=== PATIENT | male | born 1955 | race Caucasian/White ===

== ENCOUNTER 2017-01-05 12:14 | Emergency (ER) | payer MEDICAID ==
[~2017-01-05] VITALS: Ht 182.9 cm; Wt 100.0 kg
[~2017-01-05 12:14] MED LIST: FINA5TAB11 PO; TAMS0.4C31 PO
[2017-01-05 12:15] VITALS: BP 158/72
[2017-01-05] MEDS ORDERED: BACITRACIN ZINC OINT UDPKT TOP ONE (13:45)
[2017-01-05] MEDS ORDERED: LIDOCAINE HCL 1% 20ML VIAL (Pyxis) INJ INJ ONE (13:45)
[2017-01-05] MEDS ORDERED: LIDOCAINE HCL/EPINEPHRINE 1%-EPI 1:100,000 20 ML VIAL INFIL ONE (13:45)
[2017-01-05] MEDS ORDERED: LIDOCAINE HCL 1%/EPI 1:200,000 30 ML VIAL MC NR (14:26)
== END 2017-01-05 15:34 | disposition home or self-care (01) ==
LOC: ER 12:29
DX: S01.111A Laceration without foreign body of right eyelid and periocular area, initial encounter (principal); I10 Essential (primary) hypertension; C79.51 Secondary malignant neoplasm of bone; W01.0XXA Fall on same level from slipping, tripping and stumbling without subsequent striking against object, initial encounter; Y93.89 Activity, other specified; Y99.8 Other external cause status; Y92.89 Other specified places as the place of occurrence of the external cause; Z85.46 Personal history of malignant neoplasm of prostate; Z88.0 Allergy status to penicillin
CPT/HCPCS: 12002; 12013; 99283; J3490; X7700; Z7610; 12011

== ENCOUNTER 2017-01-19 07:55 | Emergency (ER) | payer MEDICAID ==
[~2017-01-19] VITALS: Ht 193 cm; Wt 114.0 kg
[2017-01-19 10:30] VITALS: BP 148/100
== END 2017-01-19 10:54 | disposition home or self-care (01) ==
LOC: ER 07:55
DX: S01.01XD Laceration without foreign body of scalp, subsequent encounter (principal); I10 Essential (primary) hypertension; C61 Malignant neoplasm of prostate; Z88.0 Allergy status to penicillin; W19.XXXD Unspecified fall, subsequent encounter; Y92.89 Other specified places as the place of occurrence of the external cause; Y99.8 Other external cause status
CPT/HCPCS: 99283; X7700; Z7610

== ENCOUNTER 2018-12-15 09:59 | Emergency (ER) | payer MEDICAID ==
[~2018-12-15] VITALS: Ht 190.5 cm; Wt 113.0 kg
[2018-12-15] MEDS ORDERED: MORPHINE SULFATE 4 MG/ML CPJ (NOT FOR IM USE) IV STA (10:39)
[2018-12-15 11:17] LABS: BASOPHILS % 1.2 % (0.0-2.0); HEMOGLOBIN. 9.8 g/dL (14.0-18.0); LYMPHOCYTES % 12.6 % (20.0-50.0); MEAN CORPUSCULAR HEMOGLOBIN 28.6 pg (28.0-32.0); MEAN CORPUSCULAR VOLUME 87.1 fL (80.0-94.0); MEAN PLATELET VOLUME 7.8 fl (7.4-10.4); MONOCYTES % 8.3 % (2.0-8.0); NEUTROPHILS % 76.9 % (40.0-76.0); PLATELET 286 x1000/uL (130-400); RED BLOOD CELL COUNT 3.44 mill/uL (4.7-6.1); RED CELL DISTRIBUTION WIDTH 16.5 % (11.6-14.6)
[2018-12-15 11:22] LABS: CHLORIDE 102 mEq/L (98-107)
[2018-12-15 12:39] VITALS: BP 137/92
[2018-12-15] MEDS ORDERED: LACTULOSE 20G/30ML UDC PO ONE (12:45)
[2018-12-15] MEDS ORDERED: MAGNESIUM CITRATE 300ML SOLUTION PO ONE (12:45)
== END 2018-12-15 13:00 | disposition home or self-care (01) ==
LOC: ER 09:59
DX: K59.00 Constipation, unspecified (principal); I10 Essential (primary) hypertension; Z85.830 Personal history of malignant neoplasm of bone; Z92.21 Personal history of antineoplastic chemotherapy; Z88.0 Allergy status to penicillin
CPT/HCPCS: 36415; 74176; 80053; 83690; 85025; 96374; 99284; J2270

== ENCOUNTER 2018-12-28 09:54 | Inpatient (IN) | payer MEDICAID ==
[2018-12-28] VITALS (7 sets, daily range): BP systolic 74–146; BP diastolic 47–78
[~2018-12-28] VITALS: Ht 188 cm; Wt 127.1 kg
[2018-12-28] MEDS ORDERED: DEXAMETHASONE 10 MG/ML VIAL IV ONE (10:45)
[2018-12-28 11:02] LABS: HEMATOCRIT. 32.8 % (42.0-52.0); HEMOGLOBIN. 10.7 g/dL (14.0-18.0); MEAN CORPUSCULAR HEMOGLOBIN 28.5 pg (28.0-32.0); MEAN CORPUSCULAR VOLUME 87.6 fL (80.0-94.0); MEAN PLATELET VOLUME 8.1 fl (7.4-10.4); PLATELET 210 x1000/uL (130-400); RED BLOOD CELL COUNT 3.74 mill/uL (4.7-6.1); RED CELL DISTRIBUTION WIDTH 18.6 % (11.6-14.6)
[2018-12-28 11:07] LABS: CHLORIDE 97 mEq/L (98-107)
[2018-12-28 11:21] LABS: PLATELET ESTIMATE NORMAL
[2018-12-28] MEDS ORDERED: MORPHINE SULFATE 4 MG/ML CPJ (NOT FOR IM USE) IV ONE (11:30)
[2018-12-28 12:12] LABS: CLARITY URINE CLOUDY (CLEAR); COLOR URINE YELLOW (YELLOW); KETONES URINE NEGATIVE (NEGATIVE); LEUKOCYTE ESTERASE URINE TRACE (NEGATIVE); NITRITE URINE NEGATIVE (NEGATIVE); OCCULT BLOOD URINE 2+ (NEGATIVE); PH URINE 5.5 (4.5-8.0); PROTEIN URINE TRACE (NEGATIVE); SPECIFIC GRAVITY URINE 1.015 (1.005-1.030); UROBILINOGEN URINE 0.2 E.U./dL (0.2-1.0)
[2018-12-28] MEDS: DEXT 5%/LACTATED RINGERS 1,000 ML IV SCH (17:30)
[2018-12-28] MEDS ORDERED: DEXAMETHASONE 4MG/ML 1ML VIAL IV SCH (18:00)
[2018-12-28] MEDS: DEXAMETHASONE 4MG/ML 1ML VIAL IV SCH (22:22)
[2018-12-28] MEDS: MORPHINE SULFATE 2 MG/ML CPJ (NOT FOR IM USE) IV PRN (23:45)
[2018-12-29] VITALS (47 sets, daily range): BP systolic 85–155; BP diastolic 54–94
[2018-12-29] MEDS: DEXAMETHASONE 4MG/ML 1ML VIAL IV SCH ×3 (01:26→08:18)
[2018-12-29] MEDS: DEXT 5%/LACTATED RINGERS 1,000 ML IV SCH ×3 (01:31→16:47)
[2018-12-29 04:45] LABS: HEMATOCRIT. 28.7 % (42.0-52.0); HEMOGLOBIN. 9.5 g/dL (14.0-18.0); MEAN CORPUSCULAR HEMOGLOBIN 28.9 pg (28.0-32.0); MEAN PLATELET VOLUME 8.8 fl (7.4-10.4); PLATELET 158 x1000/uL (130-400); RED CELL DISTRIBUTION WIDTH 18.8 % (11.6-14.6)
[2018-12-29] MEDS ORDERED: ENOXAPARIN 40MG/0.4ML SYR SUBCUT SCH (09:00)
[2018-12-29] MEDS ORDERED: PANTOPRAZOLE 40MG DR TABLET PO SCH (09:00)
[2018-12-29 09:21] LABS: PLATELET ESTIMATE NORMAL
[2018-12-29] MEDS ORDERED: DEXTROSE 50% WATER 50ML SYRINGE IV PRN (09:45)
[2018-12-29] MEDS ORDERED: IPRATROPIUM/ALBUTEROL 0.5-3(2.5)MG/3ML NEB HHN PRN (10:30)
[2018-12-29] MEDS: BLOOD SUGAR DIAGNOSTIC STRIP TEST SCH ×3 (11:52→19:56)
[2018-12-29] MEDS: INSULIN LISPRO 100 UNITS/ML SUBCUT SCH ×3 (11:59→20:02)
[2018-12-29 12:32] LABS: TOTAL IRON BINDING CAPACITY 162 ug/dL (250-450)
[2018-12-29] MEDS: DEXAMETHASONE 10 MG/ML VIAL IV SCH ×4 (12:33→23:20)
[2018-12-29 13:59] LABS: INR 1.1; PROTHROMBIN TIME 11.2 sec (9.6-11.0)
[2018-12-29] MEDS: ACETYLCYSTEINE 100MG/ML 10% VIAL 4ML INH SCH (14:13)
[2018-12-29] MEDS: IPRATROPIUM/ALBUTEROL 0.5-3(2.5)MG/3ML NEB HHN SCH ×3 (14:13→20:33)
[2018-12-29] MEDS ORDERED: LOSA50TA41 MT (15:10)
[2018-12-29] MEDS ORDERED: HYDR-3281 PO (15:10)
[2018-12-29] MEDS ORDERED: MORPHINE SULFATE PO (15:10)
[2018-12-29 16:20] LABS: HEPATITIS B SURFACE ANTIGEN NEGATIVE
[2018-12-29 16:45] LABS: HEPATITIS A AB IGM NEGATIVE (NEGATIVE)
[2018-12-29] MEDS ORDERED: BISACODYL 10MG SUPP PR NR (18:30)
[2018-12-29] MEDS: MORPHINE SULFATE 2 MG/ML CPJ (NOT FOR IM USE) IV PRN (23:31)
[2018-12-30] VITALS (57 sets, daily range): BP systolic 94–209; BP diastolic 22–115
[2018-12-30] MEDS: ACETYLCYSTEINE 100MG/ML 10% VIAL 4ML INH SCH ×3 (00:05→16:39)
[2018-12-30] MEDS: IPRATROPIUM/ALBUTEROL 0.5-3(2.5)MG/3ML NEB HHN SCH ×6 (00:05→20:38)
[2018-12-30] MEDS: DEXT 5%/LACTATED RINGERS 1,000 ML IV SCH (01:53)
[2018-12-30] MEDS: DEXAMETHASONE 10 MG/ML VIAL IV SCH (04:50)
[2018-12-30] MEDS: MORPHINE SULFATE 2 MG/ML CPJ (NOT FOR IM USE) IV PRN ×2 (04:50→08:30)
[2018-12-30 04:57] LABS: HEMATOCRIT. 25.8 % (42.0-52.0); HEMOGLOBIN. 8.6 g/dL (14.0-18.0); MEAN CORPUSCULAR HEMOGLOBIN 28.8 pg (28.0-32.0); MEAN CORPUSCULAR VOLUME 86.6 fL (80.0-94.0); MEAN PLATELET VOLUME 8.9 fl (7.4-10.4); PLATELET 147 x1000/uL (130-400); RED BLOOD CELL COUNT 2.97 mill/uL (4.7-6.1); RED CELL DISTRIBUTION WIDTH 18.3 % (11.6-14.6)
[2018-12-30 05:02] LABS: CHLORIDE 102 mEq/L (98-107)
[2018-12-30 05:15] LABS: PHOSPHORUS 2.4 mg/dL (2.5-4.9)
[2018-12-30] MEDS: BLOOD SUGAR DIAGNOSTIC STRIP TEST SCH ×4 (06:17→20:47)
[2018-12-30] MEDS: INSULIN LISPRO 100 UNITS/ML SUBCUT SCH ×4 (06:18→20:50)
[2018-12-30 08:49] LABS: PLATELET ESTIMATE NORMAL
[2018-12-30] MEDS ORDERED: SODIUM PHOS,M-BASIC-D-BASIC 15 MM in DEXT 5% WATER 245 ML IV NR (09:00)
[2018-12-30] MEDS ORDERED: LIDOCAINE HCL 1% 20ML VIAL (Pyxis) INJ ONE (09:36)
[2018-12-30] MEDS ORDERED: NORMAL SALINE 0.9% 10 ML SYR ONE ×2 (10:19→11:32)
[2018-12-30] MEDS ORDERED: THROMBIN (BOVINE) 5000 UNITS/VIAL TOP ONE ×2 (10:20→11:32)
[2018-12-30] MEDS ORDERED: LIDOCAINE HCL/EPINEPHRINE 1%-EPI 1:100,000 20 ML VIAL ONE ×2 (10:20→11:32)
[2018-12-30] MEDS ORDERED: BACITRACIN 50,000 UNITS/VIAL ONE ×2 (10:21→11:33)
[2018-12-30] MEDS: PANTOPRAZOLE SODIUM 40 MG/VIAL IV SCH (11:17)
[2018-12-30] MEDS: DEXAMETHASONE 4MG/ML 1ML VIAL IV SCH ×2 (11:42→18:36)
[2018-12-30] MEDS: LEVOFLOXACIN 500MG PREMIX 100 ML IV SCH (11:43)
[2018-12-30] MEDS ORDERED: FENTANYL CITRATE/PF 50MCG/ML 2ML VIAL ONE ×3 (13:03→15:15)
[2018-12-30] MEDS ORDERED: PROPOFOL 200MG/20ML VIAL IV ONE ×2 (13:03→15:15)
[2018-12-30] MEDS ORDERED: MIDAZOLAM HCL 2 MG/2 ML VIAL ONE (13:03)
[2018-12-30] MEDS ORDERED: ROCURONIUM BROMIDE 10MG/ML VIAL 5ML IV ONE ×4 (13:03→14:39)
[2018-12-30] MEDS ORDERED: NEOSTIGMINE METHYLSULFATE 1MG/ML 10 ML VIAL ONE (13:03)
[2018-12-30] MEDS ORDERED: PHENYLEPHRINE HCL 10 MG/ML 1ML (IV VIAL) IV ONE (13:04)
[2018-12-30] MEDS ORDERED: SUCCINYLCHOLINE CHLORIDE 200MG/10ML IV ONE (13:04)
[2018-12-30] MEDS ORDERED: SODIUM CHLORIDE 0.9% 10ML VIAL ONE (13:04)
[2018-12-30] MEDS ORDERED: GLYCOPYRROLATE 0.2 MG/ML 2ML VIAL ONE (13:04)
[2018-12-30] MEDS ORDERED: METOCLOPRAMIDE HCL 10MG/2ML VIAL ONE (13:04)
[2018-12-30] MEDS ORDERED: ONDANSETRON HCL 4MG/2ML INJ ONE (13:04)
[2018-12-30] MEDS ORDERED: EPHEDRINE SULFATE 50MG/ML VIAL ONE (13:04)
[2018-12-30] MEDS ORDERED: DEXAMETHASONE 4MG/ML 1ML VIAL ONE (13:07)
[2018-12-30 15:15] LABS: HEMATOCRIT. 27.3 % (42.0-52.0); MEAN CORPUSCULAR HEMOGLOBIN 28.8 pg (28.0-32.0); MEAN CORPUSCULAR VOLUME 87.7 fL (80.0-94.0); MEAN PLATELET VOLUME 8.6 fl (7.4-10.4); PLATELET 207 x1000/uL (130-400); RED BLOOD CELL COUNT 3.11 mill/uL (4.7-6.1); RED CELL DISTRIBUTION WIDTH 17.8 % (11.6-14.6)
[2018-12-30 15:16] LABS: CHLORIDE 105 mEq/L (98-107)
[2018-12-30] MEDS ORDERED: NICARDIPINE 100 MG in SODIUM CHLORIDE 0.9% 60 ML IV PRN (15:30)
[2018-12-30 15:47] LABS: PLATELET ESTIMATE NORMAL
[2018-12-30] MEDS: NICARDIPINE 100 MG in SODIUM CHLORIDE 0.9% 60 ML IV PRN (17:09)
[2018-12-30 17:10] LABS: BG BASE EXCESS -6.7 mmol/L (-2.0-2.0); BG CARBOXYHEMOGLOBIN 0.3 % (0.5-1.5); BG DEOXYHEMOGLOBIN 0.7 % (0.0-5.0); BG FRACTION INSPIRED OXYGEN 60; BG HCO3 ACT 20.1 mmol/L (22.0-26.0); BG METHEMOGLOBIN 0.5 % (0.0-1.5); BG OXYGEN SATURATION 99.3 % (92.0-98.5); BG OXYHEMOGLOBIN 98.5 % (94.0-97.0); BG PH 7.259 (7.350-7.450); BG PO2 266.3 mmHg (75.0-100.0); BG SAMPLE SITE A-LINE; BG TIDAL VOLUME(mL) 550 mL; BG TOTAL HEMOGLOBIN 10.9 g/dL (12.0-18.0); BG VENT MODE VENT - A/C; BG VENT RATE 12 set
[2018-12-30] MEDS: PROPOFOL 10MG/ML 100ML 100 ML IV PRN ×3 (17:10→22:06)
[2018-12-30] MEDS: [UNRECOGNIZED DRUG - REMARK] IV SCH ×4 (17:11)
[2018-12-31] VITALS (91 sets, daily range): BP systolic 91–151; BP diastolic 44–120
[2018-12-31] MEDS: IPRATROPIUM/ALBUTEROL 0.5-3(2.5)MG/3ML NEB HHN SCH ×6 (00:24→19:52)
[2018-12-31] MEDS: ACETYLCYSTEINE 100MG/ML 10% VIAL 4ML INH SCH (00:25)
[2018-12-31] MEDS: DEXAMETHASONE 4MG/ML 1ML VIAL IV SCH ×4 (00:48→18:37)
[2018-12-31] MEDS: PROPOFOL 10MG/ML 100ML 100 ML IV PRN ×3 (01:00→06:32)
[2018-12-31] MEDS: [UNRECOGNIZED DRUG - REMARK] IV SCH ×8 (01:29→18:46)
[2018-12-31] MEDS ORDERED: DEXT 5%/LACTATED RINGERS 1,000 ML IV SCH (02:00)
[2018-12-31 04:09] LABS: HIV SCREEN 4G Non Reactive (Non Reactive)
[2018-12-31 05:49] LABS: CHLORIDE 112 mEq/L (98-107)
[2018-12-31 05:53] LABS: HEMATOCRIT. 24.6 % (42.0-52.0); HEMOGLOBIN. 8.4 g/dL (14.0-18.0); MEAN CORPUSCULAR VOLUME 87.8 fL (80.0-94.0); MEAN PLATELET VOLUME 8.6 fl (7.4-10.4); PLATELET 160 x1000/uL (130-400)
[2018-12-31 05:54] LABS: PHOSPHORUS 1.9 mg/dL (2.5-4.9)
[2018-12-31] MEDS: BLOOD SUGAR DIAGNOSTIC STRIP TEST SCH ×4 (05:57→20:54)
[2018-12-31] MEDS: DEXT 5%/LACTATED RINGERS 1,000 ML IV SCH ×2 (06:01→18:00)
[2018-12-31] MEDS: INSULIN LISPRO 100 UNITS/ML SUBCUT SCH ×4 (06:07→20:56)
[2018-12-31] MEDS: PANTOPRAZOLE SODIUM 40 MG/VIAL IV SCH (08:40)
[2018-12-31 09:07] LABS: IMMUNOGLOBULIN A 206 mg/dL (61-437); IMMUNOGLOBULIN G 750 mg/dL (700-1600); IMMUNOGLOBULIN M 66 mg/dL (20-172)
[2018-12-31] MEDS: MORPHINE SULFATE 2 MG/ML CPJ (NOT FOR IM USE) IV PRN ×4 (09:36→15:38)
[2018-12-31 10:54] LABS: BG BASE EXCESS -0.7 mmol/L (-2.0-2.0); BG CARBOXYHEMOGLOBIN 0.3 % (0.5-1.5); BG DEOXYHEMOGLOBIN 1.3 % (0.0-5.0); BG FRACTION INSPIRED OXYGEN 40; BG HCO3 ACT 22.4 mmol/L (22.0-26.0); BG METHEMOGLOBIN 0.4 % (0.0-1.5); BG OXYGEN SATURATION 98.7 % (92.0-98.5); BG PH 7.476 (7.350-7.450); BG PO2 168.1 mmHg (75.0-100.0); BG PRESSURE SUPPORT 8; BG SAMPLE SITE A-LINE; BG TOTAL HEMOGLOBIN 9.3 g/dL (12.0-18.0); BG VENT MODE VENT - CPAP
[2018-12-31] MEDS ORDERED: POTASSIUM PHOS,M-BASIC-D-BASIC 20 MMOL in DEXT 5% WATER 243.3333 ML IV NR (11:00)
[2018-12-31 12:05] LABS: PLATELET ESTIMATE NORMAL
[2018-12-31] MEDS: LEVOFLOXACIN 500MG PREMIX 100 ML IV SCH (12:42)
[2018-12-31] MEDS: NICARDIPINE 100 MG in SODIUM CHLORIDE 0.9% 60 ML IV PRN (16:40)
[2018-12-31] MEDS: MORPHINE SULFATE 4 MG/ML CPJ (NOT FOR IM USE) IV PRN ×2 (18:44→20:39)
[2019-01-01] VITALS (84 sets, daily range): BP systolic 86–148; BP diastolic 46–103
[2019-01-01] MEDS: DEXAMETHASONE 4MG/ML 1ML VIAL IV SCH ×5 (00:04→23:04)
[2019-01-01] MEDS: MORPHINE SULFATE 4 MG/ML CPJ (NOT FOR IM USE) IV PRN ×9 (00:05→23:00)
[2019-01-01] MEDS: IPRATROPIUM/ALBUTEROL 0.5-3(2.5)MG/3ML NEB HHN SCH ×6 (00:49→20:28)
[2019-01-01] MEDS: DEXT 5%/LACTATED RINGERS 1,000 ML IV SCH ×3 (02:50→17:58)
[2019-01-01] MEDS: [UNRECOGNIZED DRUG - REMARK] IV SCH ×4 (05:19)
[2019-01-01 05:57] LABS: HEMATOCRIT. 24.4 % (42.0-52.0); HEMOGLOBIN. 8.2 g/dL (14.0-18.0); MEAN CORPUSCULAR HEMOGLOBIN 29.2 pg (28.0-32.0); MEAN CORPUSCULAR VOLUME 86.7 fL (80.0-94.0); MEAN PLATELET VOLUME 8.3 fl (7.4-10.4); PLATELET 128 x1000/uL (130-400); RED BLOOD CELL COUNT 2.81 mill/uL (4.7-6.1); RED CELL DISTRIBUTION WIDTH 17.9 % (11.6-14.6)
[2019-01-01 05:59] LABS: CHLORIDE 107 mEq/L (98-107)
[2019-01-01 06:04] LABS: PHOSPHORUS 2.8 mg/dL (2.5-4.9)
[2019-01-01] MEDS: BLOOD SUGAR DIAGNOSTIC STRIP TEST SCH ×4 (06:30→20:50)
[2019-01-01] MEDS: INSULIN LISPRO 100 UNITS/ML SUBCUT SCH ×4 (06:37→20:57)
[2019-01-01 08:04] LABS: PLATELET ESTIMATE SLIGHTLY DECREASED
[2019-01-01] MEDS: PANTOPRAZOLE SODIUM 40 MG/VIAL IV SCH (09:11)
[2019-01-01] MEDS ORDERED: LACTULOSE 20G/30ML UDC PO NR (10:00)
[2019-01-01] MEDS: DOCUSATE SODIUM 100MG CAPSULE PO SCH ×2 (10:49→17:53)
[2019-01-01] MEDS: LEVOFLOXACIN 500MG PREMIX 100 ML IV SCH (12:12)
[2019-01-01] MEDS: BISACODYL 5MG TABLET PO PRN (17:54)
[2019-01-02] VITALS (51 sets, daily range): BP systolic 106–152; BP diastolic 58–97
[2019-01-02] MEDS: IPRATROPIUM/ALBUTEROL 0.5-3(2.5)MG/3ML NEB HHN SCH ×5 (00:10→20:06)
[2019-01-02] MEDS: DEXT 5%/LACTATED RINGERS 1,000 ML IV SCH ×2 (01:25→12:51)
[2019-01-02] MEDS: MORPHINE SULFATE 4 MG/ML CPJ (NOT FOR IM USE) IV PRN ×4 (03:43→20:38)
[2019-01-02 05:36] LABS: CHLORIDE 107 mEq/L (98-107); MEAN CORPUSCULAR VOLUME 88.8 fL (80.0-94.0); MEAN PLATELET VOLUME 8.8 fl (7.4-10.4); PLATELET 167 x1000/uL (130-400); RED BLOOD CELL COUNT 3.26 mill/uL (4.7-6.1); RED CELL DISTRIBUTION WIDTH 17.8 % (11.6-14.6)
[2019-01-02 05:48] LABS: HEMOGLOBIN. 9.5 g/dL (14.0-18.0)
[2019-01-02] MEDS: BLOOD SUGAR DIAGNOSTIC STRIP TEST SCH ×4 (05:51→21:09)
[2019-01-02] MEDS: DEXAMETHASONE 4MG/ML 1ML VIAL IV SCH ×4 (05:55→23:57)
[2019-01-02] MEDS: INSULIN LISPRO 100 UNITS/ML SUBCUT SCH ×4 (05:57→20:39)
[2019-01-02 07:46] LABS: PLATELET ESTIMATE NORMAL
[2019-01-02] MEDS: NICARDIPINE 100 MG in SODIUM CHLORIDE 0.9% 60 ML IV PRN (08:48)
[2019-01-02] MEDS: [UNRECOGNIZED DRUG - REMARK] IV SCH ×4 (08:48)
[2019-01-02] MEDS: PANTOPRAZOLE SODIUM 40 MG/VIAL IV SCH (08:48)
[2019-01-02] MEDS: DOCUSATE SODIUM 100MG CAPSULE PO SCH ×2 (08:48→16:12)
[2019-01-02] MEDS ORDERED: LACTULOSE 20G/30ML UDC PO SCH (09:30)
[2019-01-02] MEDS ORDERED: NA PHOS,M-B/NA PHOS,DI-BA ENEMA 118ML PR PRN (09:30)
[2019-01-02] MEDS: LOSARTAN POTASSIUM 50 MG TABLET PO SCH (09:59)
[2019-01-02] MEDS: LEVOFLOXACIN 500MG PREMIX 100 ML IV SCH (12:29)
[2019-01-03] VITALS (13 sets, daily range): BP systolic 106–156; BP diastolic 65–100
[2019-01-03] MEDS: MORPHINE SULFATE 4 MG/ML CPJ (NOT FOR IM USE) IV PRN ×5 (00:07→20:25)
[2019-01-03] MEDS: IPRATROPIUM/ALBUTEROL 0.5-3(2.5)MG/3ML NEB HHN SCH ×4 (00:56→20:20)
[2019-01-03] MEDS: DEXAMETHASONE 4MG/ML 1ML VIAL IV SCH ×4 (06:31→23:31)
[2019-01-03] MEDS: BLOOD SUGAR DIAGNOSTIC STRIP TEST SCH ×4 (06:31→20:48)
[2019-01-03] MEDS: PANTOPRAZOLE 40MG DR TABLET PO SCH (06:31)
[2019-01-03] MEDS: INSULIN LISPRO 100 UNITS/ML SUBCUT SCH ×4 (07:20→20:48)
[2019-01-03 08:00] LABS: MEAN CORPUSCULAR HEMOGLOBIN 29.4 pg (28.0-32.0); MEAN CORPUSCULAR VOLUME 88.3 fL (80.0-94.0); MEAN PLATELET VOLUME 8.7 fl (7.4-10.4); PLATELET 126 x1000/uL (130-400); RED BLOOD CELL COUNT 3.05 mill/uL (4.7-6.1); RED CELL DISTRIBUTION WIDTH 17.6 % (11.6-14.6)
[2019-01-03 08:06] LABS: CHLORIDE 105 mEq/L (98-107)
[2019-01-03 08:16] LABS: PHOSPHORUS 2.9 mg/dL (2.5-4.9)
[2019-01-03] MEDS: DOCUSATE SODIUM 100MG CAPSULE PO SCH ×2 (09:00→16:21)
[2019-01-03] MEDS: [UNRECOGNIZED DRUG - REMARK] IV SCH ×4 (09:05)
[2019-01-03] MEDS: LOSARTAN POTASSIUM 50 MG TABLET PO SCH (09:06)
[2019-01-03] MEDS: DEXT 5%/LACTATED RINGERS 1,000 ML IV SCH (09:07)
[2019-01-03 10:24] LABS: PLATELET ESTIMATE SLIGHTLY DECREASED
[2019-01-03] MEDS: LACTULOSE 20G/30ML UDC PO SCH ×3 (11:42→20:47)
[2019-01-03] MEDS ORDERED: NA PHOS,M-B/NA PHOS,DI-BA ENEMA 118ML PR NR (12:00)
[2019-01-03] MEDS: LEVOFLOXACIN 500MG TABLET PO SCH (12:01)
[2019-01-03] MEDS: POLYETHYLENE GLYCOL 3350 (17GM) 1 DOSE PACK PO SCH (20:47)
[2019-01-04] VITALS (17 sets, daily range): BP systolic 111–147; BP diastolic 62–91
[2019-01-04] MEDS: MORPHINE SULFATE 4 MG/ML CPJ (NOT FOR IM USE) IV PRN ×6 (01:51→18:25)
[2019-01-04] MEDS: IPRATROPIUM/ALBUTEROL 0.5-3(2.5)MG/3ML NEB HHN SCH ×4 (02:07→20:09)
[2019-01-04] MEDS: DEXT 5%/LACTATED RINGERS 1,000 ML IV SCH ×2 (05:19→15:08)
[2019-01-04] MEDS: DEXAMETHASONE 4MG/ML 1ML VIAL IV SCH ×3 (05:19→17:17)
[2019-01-04 06:06] LABS: CHLORIDE 104 mEq/L (98-107)
[2019-01-04 06:22] LABS: HEMATOCRIT. 27.6 % (42.0-52.0); HEMOGLOBIN. 9.1 g/dL (14.0-18.0); MEAN CORPUSCULAR HEMOGLOBIN 29.2 pg (28.0-32.0); MEAN CORPUSCULAR VOLUME 88.6 fL (80.0-94.0); MEAN PLATELET VOLUME 8.9 fl (7.4-10.4); PLATELET 130 x1000/uL (130-400); RED BLOOD CELL COUNT 3.11 mill/uL (4.7-6.1); RED CELL DISTRIBUTION WIDTH 17.7 % (11.6-14.6)
[2019-01-04 06:27] LABS: PHOSPHORUS 2.6 mg/dL (2.5-4.9)
[2019-01-04] MEDS: INSULIN LISPRO 100 UNITS/ML SUBCUT SCH ×4 (06:32→21:00)
[2019-01-04] MEDS: BLOOD SUGAR DIAGNOSTIC STRIP TEST SCH ×4 (06:32→21:31)
[2019-01-04] MEDS: PANTOPRAZOLE 40MG DR TABLET PO SCH (06:32)
[2019-01-04] MEDS: LOSARTAN POTASSIUM 50 MG TABLET PO SCH (08:56)
[2019-01-04] MEDS: [UNRECOGNIZED DRUG - REMARK] IV SCH ×4 (08:56)
[2019-01-04] MEDS: DOCUSATE SODIUM 100MG CAPSULE PO SCH ×2 (08:57→17:17)
[2019-01-04] MEDS: BISACODYL 5MG TABLET PO PRN (08:57)
[2019-01-04] MEDS: BISACODYL 10MG SUPP PR SCH ×2 (09:00→18:42)
[2019-01-04 10:33] LABS: PLATELET ESTIMATE NORMAL
[2019-01-04] MEDS: LEVOFLOXACIN 500MG TABLET PO SCH (11:42)
[2019-01-04] MEDS: POLYETHYLENE GLYCOL 3350 (17GM) 1 DOSE PACK PO SCH (21:00)
[2019-01-05] VITALS (10 sets, daily range): BP systolic 133–156; BP diastolic 78–96
[2019-01-05] MEDS: DEXAMETHASONE 4MG/ML 1ML VIAL IV SCH ×3 (00:30→11:03)
[2019-01-05] MEDS: MORPHINE SULFATE 4 MG/ML CPJ (NOT FOR IM USE) IV PRN ×3 (00:36→14:17)
[2019-01-05] MEDS: IPRATROPIUM/ALBUTEROL 0.5-3(2.5)MG/3ML NEB HHN SCH ×4 (00:39→21:30)
[2019-01-05 05:29] LABS: CHLORIDE 107 mEq/L (98-107)
[2019-01-05 05:36] LABS: PHOSPHORUS 3.1 mg/dL (2.5-4.9)
[2019-01-05 05:47] LABS: HEMATOCRIT. 27.3 % (42.0-52.0); HEMOGLOBIN. 9.1 g/dL (14.0-18.0); MEAN CORPUSCULAR HEMOGLOBIN 29.1 pg (28.0-32.0); MEAN CORPUSCULAR VOLUME 87.4 fL (80.0-94.0); MEAN PLATELET VOLUME 8.9 fl (7.4-10.4); PLATELET 141 x1000/uL (130-400); RED BLOOD CELL COUNT 3.12 mill/uL (4.7-6.1); RED CELL DISTRIBUTION WIDTH 18.4 % (11.6-14.6)
[2019-01-05] MEDS: BLOOD SUGAR DIAGNOSTIC STRIP TEST SCH (06:09)
[2019-01-05] MEDS: PANTOPRAZOLE 40MG DR TABLET PO SCH (06:30)
[2019-01-05] MEDS: BISACODYL 10MG SUPP PR SCH (09:00)
[2019-01-05] MEDS: DOCUSATE SODIUM 100MG CAPSULE PO SCH ×2 (09:39→17:00)
[2019-01-05] MEDS: LOSARTAN POTASSIUM 50 MG TABLET PO SCH (09:39)
[2019-01-05 10:46] LABS: PLATELET ESTIMATE NORMAL
[2019-01-05] MEDS: LEVOFLOXACIN 500MG TABLET PO SCH (11:03)
[2019-01-05] MEDS: DEXT 5%/LACTATED RINGERS 1,000 ML IV SCH (13:49)
[2019-01-05] MEDS ORDERED: MORPHINE SULFATE 4 MG/ML CPJ (NOT FOR IM USE) IV PRN (20:30)
[2019-01-05] MEDS: POLYETHYLENE GLYCOL 3350 (17GM) 1 DOSE PACK PO SCH (21:00)
[2019-01-06] VITALS: BP 123/79
[2019-01-06] MEDS: MORPHINE SULFATE 4 MG/ML CPJ (NOT FOR IM USE) IV PRN ×5 (00:30→20:53)
[2019-01-06] MEDS: IPRATROPIUM/ALBUTEROL 0.5-3(2.5)MG/3ML NEB HHN SCH ×3 (02:07→21:22)
[2019-01-06 04:00] VITALS: BP 129/85
[2019-01-06] MEDS: PANTOPRAZOLE 40MG DR TABLET PO SCH (06:21)
[2019-01-06 07:27] LABS: HEMATOCRIT. 28.4 % (42.0-52.0); HEMOGLOBIN. 9.4 g/dL (14.0-18.0); MEAN CORPUSCULAR VOLUME 87.8 fL (80.0-94.0); MEAN PLATELET VOLUME 8.4 fl (7.4-10.4); PLATELET 138 x1000/uL (130-400); RED BLOOD CELL COUNT 3.24 mill/uL (4.7-6.1); RED CELL DISTRIBUTION WIDTH 18.3 % (11.6-14.6)
[2019-01-06 07:30] LABS: CHLORIDE 105 mEq/L (98-107)
[2019-01-06 08:00] VITALS: BP 146/83
[2019-01-06] MEDS: BISACODYL 10MG SUPP PR SCH (08:29)
[2019-01-06] MEDS: DOCUSATE SODIUM 100MG CAPSULE PO SCH ×2 (08:29→17:00)
[2019-01-06] MEDS: LOSARTAN POTASSIUM 50 MG TABLET PO SCH (08:50)
[2019-01-06] MEDS: DEXAMETHASONE 4MG TABLET PO SCH (08:50)
[2019-01-06 10:37] LABS: PLATELET ESTIMATE NORMAL
[2019-01-06 12:00] VITALS: BP 145/80
[2019-01-06 16:00] VITALS: BP 110/69
[2019-01-06 20:00] VITALS: BP 110/64
[2019-01-06] MEDS: POLYETHYLENE GLYCOL 3350 (17GM) 1 DOSE PACK PO SCH (20:56)
[2019-01-06] MEDS ORDERED: LIDOCAINE HCL/EPINEPHRINE 1%-EPI 1:100,000 20 ML VIAL IJ SCH (23:30)
[2019-01-07] VITALS: BP 126/76
[2019-01-07] MEDS: MORPHINE SULFATE 4 MG/ML CPJ (NOT FOR IM USE) IV PRN ×8 (00:03→23:23)
[2019-01-07] MEDS: IPRATROPIUM/ALBUTEROL 0.5-3(2.5)MG/3ML NEB HHN SCH ×4 (01:09→20:25)
[2019-01-07 04:00] VITALS: BP 141/94
[2019-01-07 08:00] VITALS: BP 151/83
[2019-01-07] MEDS: BISACODYL 10MG SUPP PR SCH (09:00)
[2019-01-07] MEDS: DOCUSATE SODIUM 100MG CAPSULE PO SCH (10:10)
[2019-01-07] MEDS: PANTOPRAZOLE 40MG DR TABLET PO SCH (10:11)
[2019-01-07] MEDS: DEXAMETHASONE 4MG TABLET PO SCH (10:11)
[2019-01-07] MEDS: ZINC SULFATE 220 MG ( 50 ) CAPSULE PO SCH (10:11)
[2019-01-07] MEDS: LOSARTAN POTASSIUM 50 MG TABLET PO SCH (10:11)
[2019-01-07] MEDS: ASCORBIC ACID 250 MG TABLET PO SCH (10:12)
[2019-01-07] MEDS ORDERED: LIDOCAINE HCL/EPINEPHRINE 1%-EPI 1:100,000 20 ML VIAL INFIL NR (10:45)
[2019-01-07 12:00] VITALS: BP 131/71
[2019-01-07 12:24] LABS: HEMATOCRIT. 27.4 % (42.0-52.0); HEMOGLOBIN. 9.2 g/dL (14.0-18.0); MEAN CORPUSCULAR HEMOGLOBIN 29.6 pg (28.0-32.0); MEAN CORPUSCULAR VOLUME 88.1 fL (80.0-94.0); MEAN PLATELET VOLUME 8.8 fl (7.4-10.4); PLATELET 103 x1000/uL (130-400); RED BLOOD CELL COUNT 3.11 mill/uL (4.7-6.1); RED CELL DISTRIBUTION WIDTH 18.9 % (11.6-14.6)
[2019-01-07 12:56] LABS: PLATELET ESTIMATE NORMAL
[2019-01-07 13:01] LABS: CHLORIDE 105 mEq/L (98-107)
[2019-01-07 13:07] LABS: PHOSPHORUS 3.7 mg/dL (2.5-4.9)
[2019-01-07 16:00] VITALS: BP 177/94
[2019-01-07 20:00] VITALS: BP 119/79
[2019-01-07] MEDS: POLYETHYLENE GLYCOL 3350 (17GM) 1 DOSE PACK PO SCH (21:14)
[2019-01-08] VITALS (8 sets, daily range): BP systolic 96–144; BP diastolic 64–86
[2019-01-08] MEDS: IPRATROPIUM/ALBUTEROL 0.5-3(2.5)MG/3ML NEB HHN SCH ×3 (02:18→14:24)
[2019-01-08] MEDS: MORPHINE SULFATE 4 MG/ML CPJ (NOT FOR IM USE) IV PRN ×6 (02:52→20:44)
[2019-01-08] MEDS: LOSARTAN POTASSIUM 50 MG TABLET PO SCH (09:00)
[2019-01-08] MEDS ORDERED: FAMOTIDINE 20MG TABLET PO SCH (09:00)
[2019-01-08] MEDS: DOCUSATE SODIUM 100MG CAPSULE PO SCH ×2 (09:00→17:00)
[2019-01-08] MEDS: BISACODYL 10MG SUPP PR SCH (09:00)
[2019-01-08] MEDS: DEXAMETHASONE 4MG TABLET PO SCH (09:44)
[2019-01-08] MEDS: ASCORBIC ACID 250 MG TABLET PO SCH (09:46)
[2019-01-08] MEDS: ZINC SULFATE 220 MG ( 50 ) CAPSULE PO SCH (09:51)
[2019-01-08 11:54] LABS: BASOPHILS % 0.3 % (0.0-2.0); HEMATOCRIT. 27.2 % (42.0-52.0); HEMOGLOBIN. 9.1 g/dL (14.0-18.0); LYMPHOCYTES % 7.2 % (20.0-50.0); MEAN CORPUSCULAR HEMOGLOBIN 29.3 pg (28.0-32.0); MEAN CORPUSCULAR VOLUME 87.9 fL (80.0-94.0); MEAN PLATELET VOLUME 8.6 fl (7.4-10.4); MONOCYTES % 5.1 % (2.0-8.0); NEUTROPHILS % 86.4 % (40.0-76.0); PLATELET 117 x1000/uL (130-400); RED CELL DISTRIBUTION WIDTH 18.8 % (11.6-14.6)
[2019-01-08 12:08] LABS: CHLORIDE 104 mEq/L (98-107)
[2019-01-08 12:14] LABS: PHOSPHORUS 3.1 mg/dL (2.5-4.9)
[2019-01-08] MEDS ORDERED: POLY17PO3 PO (14:29)
[2019-01-08] MEDS ORDERED: LOSA50TA3 PO (14:29)
[2019-01-08] MEDS ORDERED: FAMO20TA8 PO (14:29)
[2019-01-08] MEDS ORDERED: OR220 PO (14:29)
[2019-01-08] MEDS ORDERED: ASC250 PO (14:29)
[2019-01-08] MEDS: POLYETHYLENE GLYCOL 3350 (17GM) 1 DOSE PACK PO SCH ×2 (20:44→20:50)
[2019-01-08] MEDS ORDERED: ENOXAPARIN 30MG/0.3ML SYR SUBCUT SCH (21:00)
== END 2019-01-08 21:58 | DRG 23 ==
LOC: ER 10:03 → MICUNO 10:37 → EDBEDREQSVC 17:11 → EDBEDREQ 17:11 → ENRESERV 19:07 → MICUNO 12-31 01:58 → 3WST 01-02 22:00 → 6EST 01-05 10:25
PROVIDERS: ADMIT Internal Medicine; ATTEND Internal Medicine
PROC: 00BX0ZZ Excision of Thoracic Spinal Cord, Open Approach (ICD-10-PCS; 2018-12-30)
PROC: 02HV33Z Insertion of Infusion Device into Superior Vena Cava, Percutaneous Approach (ICD-10-PCS; 2018-12-30)
PROC: B548ZZA Ultrasonography of Superior Vena Cava, Guidance (ICD-10-PCS; 2018-12-30)
PROC: 00NX0ZZ Release Thoracic Spinal Cord, Open Approach (ICD-10-PCS; 2018-12-30)
PROC: 30233N1 Transfusion of Nonautologous Red Blood Cells into Peripheral Vein, Percutaneous Approach (ICD-10-PCS; 2018-12-30)
PROC: 0KBP0ZZ Excision of Left Hip Muscle, Open Approach (ICD-10-PCS; principal; 2019-01-07)
PROC: 0KBN0ZZ Excision of Right Hip Muscle, Open Approach (ICD-10-PCS; 2019-01-07)
DX: C79.49 Secondary malignant neoplasm of other parts of nervous system (principal); N17.0 Acute kidney failure with tubular necrosis; E43 Unspecified severe protein-calorie malnutrition; S24.103A Unspecified injury at T7-T10 level of thoracic spinal cord, initial encounter; L89.310 Pressure ulcer of right buttock, unstageable; L89.153 Pressure ulcer of sacral region, stage 3; E66.01 Morbid (severe) obesity due to excess calories; D69.6 Thrombocytopenia, unspecified; L89.320 Pressure ulcer of left buttock, unstageable; C79.51 Secondary malignant neoplasm of bone; G95.29 Other cord compression; E83.39 Other disorders of phosphorus metabolism; C61 Malignant neoplasm of prostate; E87.1 Hypo-osmolality and hyponatremia; N13.8 Other obstructive and reflux uropathy; G82.20 Paraplegia, unspecified; N39.0 Urinary tract infection, site not specified; N18.9 Chronic kidney disease, unspecified; R74.0 Nonspecific elevation of levels of transaminase and lactic acid dehydrogenase [LDH]; E83.51 Hypocalcemia; F10.20 Alcohol dependence, uncomplicated; R73.9 Hyperglycemia, unspecified; I95.9 Hypotension, unspecified; I70.0 Atherosclerosis of aorta; J98.11 Atelectasis; I05.8 Other rheumatic mitral valve diseases; K56.7 Ileus, unspecified; K75.9 Inflammatory liver disease, unspecified; L89.890 Pressure ulcer of other site, unstageable; L89.891 Pressure ulcer of other site, stage 1; N40.1 Benign prostatic hyperplasia with lower urinary tract symptoms; R33.8 Other retention of urine; M25.78 Osteophyte, vertebrae; M48.02 Spinal stenosis, cervical region; M48.061 Spinal stenosis, lumbar region without neurogenic claudication; N32.0 Bladder-neck obstruction; N31.9 Neuromuscular dysfunction of bladder, unspecified; K59.2 Neurogenic bowel, not elsewhere classified; I12.9 Hypertensive chronic kidney disease with stage 1 through stage 4 chronic kidney disease, or unspecified chronic kidney disease; L97.529 Non-pressure chronic ulcer of other part of left foot with unspecified severity; L97.419 Non-pressure chronic ulcer of right heel and midfoot with unspecified severity; W05.0XXA Fall from non-moving wheelchair, initial encounter; S90.414A Abrasion, right lesser toe(s), initial encounter; S90.31XA Contusion of right foot, initial encounter; D63.8 Anemia in other chronic diseases classified elsewhere; S90.822A Blister (nonthermal), left foot, initial encounter; S90.821A Blister (nonthermal), right foot, initial encounter; Z88.1 Allergy status to other antibiotic agents; Z99.3 Dependence on wheelchair; Z82.49 Family history of ischemic heart disease and other diseases of the circulatory system; Z92.21 Personal history of antineoplastic chemotherapy; Z92.3 Personal history of irradiation; Y93.89 Activity, other specified; Y99.8 Other external cause status; Z68.36 Body mass index [BMI] 36.0-36.9, adult; Y92.098 Other place in other non-institutional residence as the place of occurrence of the external cause; Z79.899 Other long term (current) drug therapy
CPT/HCPCS: 36415; 36600; 71045; 72141; 72146; 72148; 74018; 76770; 76937; 80048; 80076; 81003; 82375; 82784; 82805; 82962; 83036; 83540; 83550; 83735; 83880; 84100; 84134; 84145; 84153; 84478; 86334; 86705; 86709; 86803; 86850; 86900; 86920; 87340; 87389; 88305; 88311; 93005; 93306; 93970; 94002; 94003; 94640; 97110; 97112; 97116; 97163; 97166; 97530; 99285; C1725; C9113; J0330; J1100; J1650; J1815; J1956; J2250; J2270; J2370; J2405; J2704; J2710; J2765; J3010; J3411; J3490; J7050; J7060; J7121; J7608; J7620; J8540; P9021; G0103

== ENCOUNTER 2019-02-04 16:19 | Inpatient (IN) | payer MEDICAID ==
[~2019-02-04] VITALS: Ht 188 cm; Wt 128.8 kg
[~2019-02-04 16:19] MED LIST changes: +ASC250 PO; +FAMO20TA8 PO; +HYDR-3281 PO; +HYDR-4009 MT; +LOSA50TA3 PO; +MORP10CA8 MT; +OR220 PO; +POLY17PO3 PO
[2019-02-04] MEDS ORDERED: SODIUM CHLORIDE 0.9% 1,000 ML IV ONE (16:53)
[2019-02-04] MEDS ORDERED: LEVOFLOXACIN 750MG PREMIX 150 ML IV ONE (17:15)
[2019-02-04] MEDS ORDERED: VANCOMYCIN 1 G PREMIX 200 ML IV ONE (17:15)
[2019-02-04] MEDS ORDERED: HYDROCORTISONE SOD SUCCINATE 100 MG/2 ML VIAL IV ONE (17:15)
[2019-02-04 17:31] LABS: BASOPHILS % 0.5 % (0.0-2.0); EOSINOPHILS % 0.4 % (0.0-5.0); HEMATOCRIT. 26.4 % (42.0-52.0); HEMOGLOBIN. 8.4 g/dL (14.0-18.0); LYMPHOCYTES % 16.9 % (20.0-50.0); MEAN CORPUSCULAR HEMOGLOBIN 26.6 pg (28.0-32.0); MEAN PLATELET VOLUME 8.3 fl (7.4-10.4); MONOCYTES % 6.2 % (2.0-8.0); PLATELET 308 x1000/uL (130-400); RED BLOOD CELL COUNT 3.14 mill/uL (4.7-6.1); RED CELL DISTRIBUTION WIDTH 18.5 % (11.6-14.6)
[2019-02-04 17:35] LABS: CHLORIDE 104 mEq/L (98-107)
[2019-02-04 17:41] LABS: INR 1.1; PROTHROMBIN TIME 11.7 sec (9.6-11.0)
[2019-02-04 17:49] LABS: BG BASE EXCESS -2.7 mmol/L (-2.0-2.0); BG CARBOXYHEMOGLOBIN 0.1 % (0.5-1.5); BG DEOXYHEMOGLOBIN 6.2 % (0.0-5.0); BG FRACTION INSPIRED OXYGEN 21; BG METHEMOGLOBIN 0.4 % (0.0-1.5); BG OXYGEN SATURATION 93.8 % (92.0-98.5); BG OXYHEMOGLOBIN 93.3 % (94.0-97.0); BG PCO2 27.1 mmHg (35.0-45.0); BG PH 7.486 (7.350-7.450); BG PO2 67.3 mmHg (75.0-100.0); BG SAMPLE SITE RIGHT RADIAL; BG TOTAL HEMOGLOBIN 8.8 g/dL (12.0-18.0); BG VENT MODE ROOM AIR
[2019-02-04] MEDS ORDERED: LEVOFLOXACIN 500MG PREMIX 100 ML IV SCH (19:45)
[2019-02-04] MEDS ORDERED: TRAMADOL 50MG TABLET PO PRN (19:45)
[2019-02-04] MEDS ORDERED: DOCUSATE SODIUM 100MG CAPSULE PO PRN (19:45)
[2019-02-04] MEDS ORDERED: NITROGLYCERIN 0.4MG TABLET SL SL PRN (19:45)
[2019-02-04] MEDS ORDERED: CLONIDINE 0.1MG TABLET PO PRN (19:45)
[2019-02-04] MEDS ORDERED: IPRATROPIUM/ALBUTEROL 0.5-3(2.5)MG/3ML NEB HHN PRN (19:45)
[2019-02-04] MEDS ORDERED: SODIUM CHLORIDE 0.9% 1000ML BAG (SEPSIS BOLUS) IV ONE (19:45)
[2019-02-04] MEDS ORDERED: MAGNESIUM/ALUMINUM HYDROXIDE/SIMETHICONE 30ML UDC PO PRN (19:45)
[2019-02-04] MEDS ORDERED: ONDANSETRON HCL 4MG/2ML INJ IV PRN (19:45)
[2019-02-04] MEDS ORDERED: KETOROLAC 15MG/ML VIAL IV PRN (19:45)
[2019-02-04] MEDS ORDERED: GUAIFENESIN 200MG/10ML SUGAR FREE UDC PO PRN (19:45)
[2019-02-04] MEDS ORDERED: ZOLPIDEM TARTRATE 5MG TABLET PO PRN (19:45)
[2019-02-04] MEDS ORDERED: LORAZEPAM 0.5MG TABLET PO PRN (19:45)
[2019-02-04] MEDS ORDERED: ENOXAPARIN 40MG/0.4ML SYR SUBCUT SCH (19:45)
[2019-02-04] MEDS: FAMOTIDINE 20MG TABLET PO SCH (21:00)
[2019-02-04 21:30] LABS: TOTAL IRON BINDING CAPACITY 129 ug/dL (250-450)
[2019-02-04] MEDS ORDERED: METRONIDAZOLE 500 MG PREMIX 100 ML IV SCH (21:30)
[2019-02-04 21:44] LABS: FOLIC ACID (FOLATE) SERUM 11.9 ng/mL (>5.38)
[2019-02-05] VITALS (12 sets, daily range): BP systolic 104–126; BP diastolic 63–92
[2019-02-05] MEDS: MORPHINE SULFATE 2 MG/ML CPJ (NOT FOR IM USE) IV PRN ×4 (02:06→18:50)
[2019-02-05] MEDS ORDERED: VANCOMYCIN 1 G PREMIX 200 ML IV SCH (03:00)
[2019-02-05] MEDS: METRONIDAZOLE 500 MG PREMIX 100 ML IV SCH ×3 (04:38→22:01)
[2019-02-05] MEDS: SODIUM CHLORIDE 0.9% INJ 3ML FLUSH IVF SCH ×3 (05:21→22:01)
[2019-02-05] MEDS: ASCORBIC ACID 500 MG TABLET PO SCH ×2 (08:29→20:20)
[2019-02-05] MEDS: FAMOTIDINE 20MG TABLET PO SCH ×2 (08:29→20:20)
[2019-02-05] MEDS: ZINC SULFATE 220 MG ( 50 ) CAPSULE PO SCH (08:30)
[2019-02-05] MEDS: TAMSULOSIN HCL 0.4MG SR CAPSULE PO SCH ×2 (08:30→09:00)
[2019-02-05] MEDS: ENOXAPARIN 30MG/0.3ML SYR SUBCUT SCH ×2 (08:30→20:21)
[2019-02-05] MEDS: DUTASTERIDE 0.5MG CAPSULE PO SCH ×2 (08:30→09:00)
[2019-02-05] MEDS ORDERED: SODIUM HYPOCHLORITE 0.125% 473ML SOLUTION TOP SCH (17:00)
[2019-02-05 17:41] LABS: BASOPHILS % 0.5 % (0.0-2.0); EOSINOPHILS % 0.4 % (0.0-5.0); HEMATOCRIT. 23.4 % (42.0-52.0); HEMOGLOBIN. 7.6 g/dL (14.0-18.0); LYMPHOCYTES % 19.9 % (20.0-50.0); MEAN CORPUSCULAR HEMOGLOBIN 27.2 pg (28.0-32.0); MEAN CORPUSCULAR VOLUME 84.1 fL (80.0-94.0); MEAN PLATELET VOLUME 8.3 fl (7.4-10.4); MONOCYTES % 7.7 % (2.0-8.0); NEUTROPHILS % 71.5 % (40.0-76.0); PLATELET 230 x1000/uL (130-400); RED BLOOD CELL COUNT 2.78 mill/uL (4.7-6.1); RED CELL DISTRIBUTION WIDTH 18.2 % (11.6-14.6)
[2019-02-05] MEDS: LEVOFLOXACIN 500MG PREMIX 100 ML IV SCH (17:50)
[2019-02-05 17:54] LABS: CHLORIDE 107 mEq/L (98-107)
[2019-02-05] MEDS ORDERED: LEVOFLOXACIN 500MG PREMIX 100 ML IV SCH (18:00)
[2019-02-05] MEDS: VANCOMYCIN 1500MG in DEXTROSE 5% WATER 250ML IV SCH (18:39)
[2019-02-06] VITALS (12 sets, daily range): BP systolic 104–128; BP diastolic 64–87
[2019-02-06] MEDS: SODIUM HYPOCHLORITE 0.125% 473ML SOLUTION TOP SCH ×3 (01:03→17:05)
[2019-02-06] MEDS: MORPHINE SULFATE 2 MG/ML CPJ (NOT FOR IM USE) IV PRN ×6 (02:18→22:32)
[2019-02-06] MEDS: METRONIDAZOLE 500 MG PREMIX 100 ML IV SCH ×3 (05:16→22:31)
[2019-02-06] MEDS: SODIUM CHLORIDE 0.9% INJ 3ML FLUSH IVF SCH ×3 (05:26→22:32)
[2019-02-06] MEDS: ZINC SULFATE 220 MG ( 50 ) CAPSULE PO SCH (08:27)
[2019-02-06] MEDS: FAMOTIDINE 20MG TABLET PO SCH ×2 (08:27→20:42)
[2019-02-06] MEDS: ASCORBIC ACID 500 MG TABLET PO SCH ×2 (08:27→20:41)
[2019-02-06] MEDS: ENOXAPARIN 30MG/0.3ML SYR SUBCUT SCH ×2 (08:27→20:45)
[2019-02-06] MEDS ORDERED: LIDOCAINE HCL/EPINEPHRINE 1%-EPI 1:100,000 20 ML VIAL INFIL NR (09:00)
[2019-02-06] MEDS: VANCOMYCIN 1500MG in DEXTROSE 5% WATER 250ML IV SCH (13:53)
[2019-02-06] MEDS: LEVOFLOXACIN 500MG PREMIX 100 ML IV SCH (18:13)
[2019-02-07] VITALS (13 sets, daily range): BP systolic 107–151; BP diastolic 57–106
[2019-02-07 04:44] LABS: BASOPHILS % 0.3 % (0.0-2.0); EOSINOPHILS % 1.2 % (0.0-5.0); HEMOGLOBIN. 7.5 g/dL (14.0-18.0); LYMPHOCYTES % 28.1 % (20.0-50.0); MEAN CORPUSCULAR HEMOGLOBIN 27.3 pg (28.0-32.0); MEAN CORPUSCULAR VOLUME 83.9 fL (80.0-94.0); MEAN PLATELET VOLUME 8.2 fl (7.4-10.4); MONOCYTES % 9.9 % (2.0-8.0); NEUTROPHILS % 60.5 % (40.0-76.0); PLATELET 212 x1000/uL (130-400); RED BLOOD CELL COUNT 2.74 mill/uL (4.7-6.1); RED CELL DISTRIBUTION WIDTH 18.2 % (11.6-14.6)
[2019-02-07 04:46] LABS: CHLORIDE 106 mEq/L (98-107)
[2019-02-07 04:53] LABS: VANCOMYCIN TROUGH 16.6 ug/mL (5.0-10.0)
[2019-02-07] MEDS: METRONIDAZOLE 500 MG PREMIX 100 ML IV SCH ×3 (05:17→21:52)
[2019-02-07] MEDS: SODIUM CHLORIDE 0.9% INJ 3ML FLUSH IVF SCH ×3 (05:17→21:40)
[2019-02-07] MEDS: VANCOMYCIN 1500MG in DEXTROSE 5% WATER 250ML IV SCH ×2 (06:58→23:39)
[2019-02-07] MEDS: MORPHINE SULFATE 2 MG/ML CPJ (NOT FOR IM USE) IV PRN ×5 (07:25→23:56)
[2019-02-07] MEDS: FAMOTIDINE 20MG TABLET PO SCH ×2 (08:38→20:00)
[2019-02-07] MEDS: ASCORBIC ACID 500 MG TABLET PO SCH ×2 (08:38→20:00)
[2019-02-07] MEDS: ENOXAPARIN 30MG/0.3ML SYR SUBCUT SCH ×2 (08:38→20:01)
[2019-02-07] MEDS: DUTASTERIDE 0.5MG CAPSULE PO SCH (08:38)
[2019-02-07] MEDS: ZINC SULFATE 220 MG ( 50 ) CAPSULE PO SCH (08:38)
[2019-02-07] MEDS: SODIUM HYPOCHLORITE 0.125% 473ML SOLUTION TOP SCH ×2 (08:39→17:36)
[2019-02-07] MEDS: LEVOFLOXACIN 500MG PREMIX 100 ML IV SCH (17:36)
[2019-02-07] MEDS: ACETAMINOPHEN 325MG TABLET PO PRN (20:55)
[2019-02-08] VITALS (12 sets, daily range): BP systolic 111–155; BP diastolic 72–101
[2019-02-08] MEDS: MORPHINE SULFATE 2 MG/ML CPJ (NOT FOR IM USE) IV PRN ×4 (05:28→18:24)
[2019-02-08] MEDS: SODIUM CHLORIDE 0.9% INJ 3ML FLUSH IVF SCH ×3 (06:00→21:33)
[2019-02-08] MEDS: METRONIDAZOLE 500 MG PREMIX 100 ML IV SCH ×3 (06:09→21:32)
[2019-02-08] MEDS: FAMOTIDINE 20MG TABLET PO SCH ×2 (08:12→21:32)
[2019-02-08] MEDS: ASCORBIC ACID 500 MG TABLET PO SCH ×2 (08:12→21:32)
[2019-02-08] MEDS: ZINC SULFATE 220 MG ( 50 ) CAPSULE PO SCH (08:12)
[2019-02-08] MEDS: SODIUM HYPOCHLORITE 0.125% 473ML SOLUTION TOP SCH ×2 (08:13→17:00)
[2019-02-08] MEDS: DUTASTERIDE 0.5MG CAPSULE PO SCH (08:40)
[2019-02-08] MEDS: ENOXAPARIN 30MG/0.3ML SYR SUBCUT SCH ×2 (10:00→21:32)
[2019-02-08] MEDS: LEVOFLOXACIN 500MG PREMIX 100 ML IV SCH (17:15)
[2019-02-08] MEDS: VANCOMYCIN 1500MG in DEXTROSE 5% WATER 250ML IV SCH (18:24)
[2019-02-09] VITALS (12 sets, daily range): BP systolic 122–143; BP diastolic 72–97
[2019-02-09] MEDS: MORPHINE SULFATE 2 MG/ML CPJ (NOT FOR IM USE) IV PRN ×5 (04:58→23:00)
[2019-02-09] MEDS: SODIUM CHLORIDE 0.9% INJ 3ML FLUSH IVF SCH ×3 (06:27→22:58)
[2019-02-09] MEDS: METRONIDAZOLE 500 MG PREMIX 100 ML IV SCH ×3 (06:28→21:07)
[2019-02-09] MEDS: FAMOTIDINE 20MG TABLET PO SCH ×2 (08:58→21:06)
[2019-02-09] MEDS: DUTASTERIDE 0.5MG CAPSULE PO SCH (08:58)
[2019-02-09] MEDS: ZINC SULFATE 220 MG ( 50 ) CAPSULE PO SCH (08:59)
[2019-02-09] MEDS: ASCORBIC ACID 500 MG TABLET PO SCH ×2 (08:59→21:06)
[2019-02-09] MEDS: ENOXAPARIN 30MG/0.3ML SYR SUBCUT SCH ×2 (08:59→21:07)
[2019-02-09] MEDS: SODIUM HYPOCHLORITE 0.125% 473ML SOLUTION TOP SCH ×2 (09:00→18:00)
[2019-02-09] MEDS: VANCOMYCIN 1500MG in DEXTROSE 5% WATER 250ML IV SCH (12:26)
[2019-02-09] MEDS: LEVOFLOXACIN 500MG PREMIX 100 ML IV SCH (18:00)
[2019-02-09] MEDS: ACETAMINOPHEN 325MG TABLET PO PRN (21:07)
[2019-02-10] VITALS (12 sets, daily range): BP systolic 114–143; BP diastolic 70–92
[2019-02-10] MEDS: MORPHINE SULFATE 2 MG/ML CPJ (NOT FOR IM USE) IV PRN ×5 (04:07→22:18)
[2019-02-10] MEDS: METRONIDAZOLE 500 MG PREMIX 100 ML IV SCH ×3 (06:07→22:17)
[2019-02-10] MEDS: VANCOMYCIN 1500MG in DEXTROSE 5% WATER 250ML IV SCH (06:07)
[2019-02-10] MEDS: SODIUM CHLORIDE 0.9% INJ 3ML FLUSH IVF SCH ×3 (06:07→22:17)
[2019-02-10] MEDS: FAMOTIDINE 20MG TABLET PO SCH ×2 (08:20→22:17)
[2019-02-10] MEDS: ZINC SULFATE 220 MG ( 50 ) CAPSULE PO SCH (08:20)
[2019-02-10] MEDS: ENOXAPARIN 30MG/0.3ML SYR SUBCUT SCH ×2 (08:20→21:00)
[2019-02-10] MEDS: ASCORBIC ACID 500 MG TABLET PO SCH ×2 (08:20→22:17)
[2019-02-10] MEDS: DUTASTERIDE 0.5MG CAPSULE PO SCH (08:20)
[2019-02-10] MEDS: SODIUM HYPOCHLORITE 0.125% 473ML SOLUTION TOP SCH ×2 (08:21→17:00)
[2019-02-10] MEDS: LEVOFLOXACIN 500MG PREMIX 100 ML IV SCH (17:51)
[2019-02-11] VITALS (10 sets, daily range): BP systolic 126–144; BP diastolic 38–101
[2019-02-11] MEDS: VANCOMYCIN 1500MG in DEXTROSE 5% WATER 250ML IV SCH ×2 (00:25→17:14)
[2019-02-11] MEDS: MORPHINE SULFATE 2 MG/ML CPJ (NOT FOR IM USE) IV PRN ×4 (02:51→14:10)
[2019-02-11] MEDS: METRONIDAZOLE 500 MG PREMIX 100 ML IV SCH ×2 (05:19→14:00)
[2019-02-11] MEDS: SODIUM CHLORIDE 0.9% INJ 3ML FLUSH IVF SCH (05:19)
[2019-02-11 07:11] LABS: BASOPHILS % 0.2 % (0.0-2.0); EOSINOPHILS % 2.6 % (0.0-5.0); HEMATOCRIT. 24.3 % (42.0-52.0); HEMOGLOBIN. 7.8 g/dL (14.0-18.0); LYMPHOCYTES % 23.6 % (20.0-50.0); MEAN CORPUSCULAR HEMOGLOBIN 26.7 pg (28.0-32.0); MEAN CORPUSCULAR VOLUME 82.9 fL (80.0-94.0); MEAN PLATELET VOLUME 8.5 fl (7.4-10.4); MONOCYTES % 9.6 % (2.0-8.0); PLATELET 269 x1000/uL (130-400); RED BLOOD CELL COUNT 2.93 mill/uL (4.7-6.1); RED CELL DISTRIBUTION WIDTH 18.3 % (11.6-14.6)
[2019-02-11 07:19] LABS: CHLORIDE 102 mEq/L (98-107)
[2019-02-11] MEDS: ENOXAPARIN 30MG/0.3ML SYR SUBCUT SCH (08:31)
[2019-02-11] MEDS: DUTASTERIDE 0.5MG CAPSULE PO SCH (08:31)
[2019-02-11] MEDS: FAMOTIDINE 20MG TABLET PO SCH (08:31)
[2019-02-11] MEDS: ZINC SULFATE 220 MG ( 50 ) CAPSULE PO SCH (08:31)
[2019-02-11] MEDS: ASCORBIC ACID 500 MG TABLET PO SCH (08:31)
[2019-02-11] MEDS: SODIUM HYPOCHLORITE 0.125% 473ML SOLUTION TOP SCH (08:44)
[2019-02-11] MEDS: LEVOFLOXACIN 500MG PREMIX 100 ML IV SCH (17:14)
== END 2019-02-11 19:40 | disposition hospice, home (50) | DRG 710 ==
LOC: ER 16:19 → 5EST 19:18 → EDBEDREQ 19:25 → EDBEDREQTM 19:25 → CANRESERV 21:26 → ENRESERV 21:26
PROVIDERS: ADMIT Internal Medicine; ATTEND Internal Medicine
PROC: 0QB10ZZ Excision of Sacrum, Open Approach (ICD-10-PCS; principal; 2019-02-06)
DX: A41.9 Sepsis, unspecified organism (principal); E43 Unspecified severe protein-calorie malnutrition; L89.154 Pressure ulcer of sacral region, stage 4; C79.51 Secondary malignant neoplasm of bone; G82.20 Paraplegia, unspecified; I82.419 Acute embolism and thrombosis of unspecified femoral vein; E66.01 Morbid (severe) obesity due to excess calories; E83.51 Hypocalcemia; D63.8 Anemia in other chronic diseases classified elsewhere; Z51.5 Encounter for palliative care; Z66 Do not resuscitate; R74.0 Nonspecific elevation of levels of transaminase and lactic acid dehydrogenase [LDH]; F10.10 Alcohol abuse, uncomplicated; N28.9 Disorder of kidney and ureter, unspecified; L02.31 Cutaneous abscess of buttock; I10 Essential (primary) hypertension; R62.7 Adult failure to thrive; S90.822A Blister (nonthermal), left foot, initial encounter; S90.821A Blister (nonthermal), right foot, initial encounter; X58.XXXA Exposure to other specified factors, initial encounter; Y93.89 Activity, other specified; Y92.89 Other specified places as the place of occurrence of the external cause; Y99.8 Other external cause status; Z85.46 Personal history of malignant neoplasm of prostate; Z86.718 Personal history of other venous thrombosis and embolism; Z92.21 Personal history of antineoplastic chemotherapy; Z88.1 Allergy status to other antibiotic agents; Z88.0 Allergy status to penicillin; Z68.36 Body mass index [BMI] 36.0-36.9, adult
CPT/HCPCS: 36415; 36600; 71045; 74176; 80048; 80202; 82375; 82607; 82746; 82805; 82962; 83540; 83550; 83605; 83880; 84134; 84145; 84484; 93005; 93970; 99291; J1650; J1720; J1885; J1956; J2270; J3370; J3490; J7030; J7060

== ENCOUNTER 2019-04-27 12:23 | Inpatient (IN) | payer MEDICAID ==
[~2019-04-27] VITALS: Ht 182.9 cm; Wt 91.6 kg
[~2019-04-27 12:23] MED LIST changes: -HYDR-3281 PO
[2019-04-27] MEDS ORDERED: VANCOMYCIN 1 G PREMIX 200 ML IV ONE (12:45)
[2019-04-27] MEDS ORDERED: PIPERACILLIN/TAZ 3.375G PREMIX 50 ML IV ONE (12:45)
[2019-04-27] MEDS ORDERED: SODIUM CHLORIDE 0.9% 1000ML BAG (SEPSIS BOLUS) IV ONE (12:45)
[2019-04-27 13:00] LABS: HEMATOCRIT. 23.6 % (42.0-52.0); HEMOGLOBIN. 7.2 g/dL (14.0-18.0); MEAN CORPUSCULAR HEMOGLOBIN 25.1 pg (28.0-32.0); MEAN PLATELET VOLUME 8.4 fl (7.4-10.4); PLATELET 282 x1000/uL (130-400); RED BLOOD CELL COUNT 2.88 mill/uL (4.7-6.1); RED CELL DISTRIBUTION WIDTH 18.7 % (11.6-14.6)
[2019-04-27 13:04] LABS: CHLORIDE 102 mEq/L (98-107)
[2019-04-27 13:08] LABS: INR 1.6; PROTHROMBIN TIME 16.6 sec (9.6-11.0)
[2019-04-27 13:23] LABS: PLATELET ESTIMATE NORMAL
[2019-04-27] MEDS ORDERED: PROPOFOL 10MG/ML 100ML 100 ML IV ONE (13:45)
[2019-04-27] MEDS ORDERED: NOREPINEPHRINE 4MG/250ML PMX 250 ML IV ONE (14:09)
[2019-04-27] MEDS ORDERED: NOREPINEPHRINE 4 MG in DEXT 5% WATER 246 ML IV ONE (14:15)
[2019-04-27 15:08] LABS: BG BASE EXCESS -10.4 mmol/L (-2.0-2.0); BG CARBOXYHEMOGLOBIN 0.5 % (0.5-1.5); BG DEOXYHEMOGLOBIN 0.9 % (0.0-5.0); BG FRACTION INSPIRED OXYGEN 70; BG HCO3 ACT 14.3 mmol/L (22.0-26.0); BG METHEMOGLOBIN 0.2 % (0.0-1.5); BG OXYGEN SATURATION 99.1 % (92.0-98.5); BG OXYHEMOGLOBIN 98.4 % (94.0-97.0); BG PCO2 26.5 mmHg (35.0-45.0); BG PH 7.349 (7.350-7.450); BG PO2 192.5 mmHg (75.0-100.0); BG SAMPLE SITE RIGHT RADIAL; BG TIDAL VOLUME(mL) 600 mL; BG TOTAL HEMOGLOBIN 5.9 g/dL (12.0-18.0); BG VENT MODE VENT - A/C; BG VENT RATE 14 set
[2019-04-27] MEDS ORDERED: SODIUM CHLORIDE 0.9% 1,000 ML IV ONE (16:12)
[2019-04-27] MEDS ORDERED: HYDROCODONE/ACETAMINOPHEN 10/325MG TABLET PO PRN (19:00)
[2019-04-27] MEDS ORDERED: NOREPINEPHRINE 4MG/250ML PMX 250 ML IV SCH ×2 (19:00→20:00)
[2019-04-27] MEDS ORDERED: MAGNESIUM/ALUMINUM HYDROXIDE/SIMETHICONE 30ML UDC PO PRN (19:00)
[2019-04-27] MEDS ORDERED: HYDRALAZINE 20MG/ML VIAL IV PRN (19:00)
[2019-04-27] MEDS ORDERED: DOCUSATE SODIUM 100MG CAPSULE PO PRN (19:00)
[2019-04-27] MEDS ORDERED: DIPHENHYDRAMINE 50MG/ML VIAL IV PRN (19:00)
[2019-04-27] MEDS ORDERED: DEXT 5%/0.9% NACL 1,000 ML IV SCH (19:00)
[2019-04-27] MEDS ORDERED: ACETAMINOPHEN 325MG TABLET PO PRN (19:00)
[2019-04-27] MEDS ORDERED: GUAIFENESIN 200MG/10ML SUGAR FREE UDC PO PRN (19:00)
[2019-04-27] MEDS ORDERED: ONDANSETRON HCL 4MG/2ML INJ IV PRN (19:00)
[2019-04-27] MEDS ORDERED: CLONIDINE 0.1MG TABLET PO PRN (19:00)
[2019-04-27] MEDS ORDERED: LORAZEPAM 2MG/ML CPJ IV PRN (19:00)
[2019-04-27] MEDS ORDERED: IPRATROPIUM/ALBUTEROL 0.5-3(2.5)MG/3ML NEB HHN PRN (19:00)
[2019-04-27] MEDS ORDERED: MORPHINE SULFATE 2 MG/ML CPJ (NOT FOR IM USE) IV PRN (19:00)
[2019-04-27 20:12] LABS: HEMATOCRIT. 27.3 % (42.0-52.0); MEAN CORPUSCULAR HEMOGLOBIN 24.9 pg (28.0-32.0); MEAN CORPUSCULAR VOLUME 85.2 fL (80.0-94.0); MEAN PLATELET VOLUME 8.4 fl (7.4-10.4); PLATELET 304 x1000/uL (130-400); RED CELL DISTRIBUTION WIDTH 18.8 % (11.6-14.6)
[2019-04-27 20:26] LABS: PLATELET ESTIMATE NORMAL
[2019-04-27] MEDS ORDERED: MIDAZOLAM HCL 50 MG in DEXTROSE 5% WATER 40 ML IV ONE (20:30)
[2019-04-27] MEDS ORDERED: PHENYLEPHRINE 20 MG in DEXT 5% WATER 498 ML IV PRN ×5 (20:30→23:15)
[2019-04-27] MEDS ORDERED: MIDAZOLAM HCL 50 MG in DEXTROSE 5% WATER 40 ML IV NR (20:45)
[2019-04-27] MEDS ORDERED: LEVOFLOXACIN 500MG PREMIX 100 ML IV NR (21:30)
[2019-04-27] MEDS ORDERED: VASOPRESSIN 10 UNIT in SODIUM CHLORIDE 0.9% 99.5 ML IV PRN ×2 (23:00→23:15)
[2019-04-27] MEDS ORDERED: HETASTARCH/NORMAL SALINE 500 ML PLAST..BAG IV ONE (23:00)
[2019-04-27] MEDS ORDERED: HETASTARCH/NORMAL SALINE 500 ML IV NR (23:30)
[2019-04-28] VITALS (78 sets, daily range): BP systolic 65–112; BP diastolic 37–72
[2019-04-28 04:50] LABS: HEMATOCRIT. 24.1 % (42.0-52.0); MEAN CORPUSCULAR HEMOGLOBIN 25.3 pg (28.0-32.0); MEAN CORPUSCULAR VOLUME 88.1 fL (80.0-94.0); PLATELET 191 x1000/uL (130-400); RED BLOOD CELL COUNT 2.74 mill/uL (4.7-6.1); RED CELL DISTRIBUTION WIDTH 19.2 % (11.6-14.6)
[2019-04-28 04:54] LABS: HEMOGLOBIN. 6.9 g/dL (14.0-18.0)
[2019-04-28 04:55] LABS: CHLORIDE 104 mEq/L (98-107)
[2019-04-28 05:03] LABS: LDL CHOLESTEROL 30 mg/dL (5-100)
[2019-04-28 05:04] LABS: HDL CHOLESTEROL 8 mg/dL (40-59)
[2019-04-28 05:05] LABS: CREATINE KINASE 140 IU/L (39-308); CREATINE KINASE MB FRACTION 1.8 ng/mL (0.5-3.6); T4 FREE 0.63 ng/dL (0.76-1.46)
[2019-04-28 05:59] LABS: PLATELET ESTIMATE NORMAL
[2019-04-28] MEDS: VASOPRESSIN 10 UNIT in SODIUM CHLORIDE 0.9% 99.5 ML IV PRN ×3 (08:21→21:16)
[2019-04-28] MEDS ORDERED: SODIUM BICARBONATE 8.4% 1 MEQ/ML 50ML SYR IV SCH (08:45)
[2019-04-28] MEDS: SODIUM BICARBONATE 100 MEQ in SODIUM CHLORIDE 0.45% 1,000 ML IV SCH (09:00)
[2019-04-28] MEDS ORDERED: PHENYLEPHRINE 20 MG in DEXT 5% WATER 498 ML IV PRN (10:15)
[2019-04-28] MEDS ORDERED: FENTANYL CITRATE/PF 500 MCG in SODIUM CHLORIDE 0.9% 40 ML IV PRN (13:30)
[2019-04-28] MEDS ORDERED: NOREPINEPHRINE 32 MG in DEXT 5% WATER 468 ML IV PRN (13:45)
[2019-04-28] MEDS: SODIUM CHLORIDE 0.9% INJ 3ML FLUSH IVF SCH ×2 (14:00→21:16)
[2019-04-28] MEDS ORDERED: MIDAZOLAM HCL 50 MG in DEXTROSE 5% WATER 40 ML IV PRN (14:00)
[2019-04-28] MEDS ORDERED: SODIUM BICARBONATE 8.4% 1 MEQ/ML 50ML SYR IV ONE (14:36)
[2019-04-28] MEDS ORDERED: PHENYLEPHRINE HCL 10 MG/ML 1ML (IV VIAL) IV ONE (14:47)
[2019-04-28] MEDS ORDERED: VANCOMYCIN 1,500 MG in DEXT 5% WATER 250 ML IV SCH (16:00)
[2019-04-28] MEDS: NOREPINEPHRINE 32 MG in DEXT 5% WATER 468 ML IV PRN (16:05)
[2019-04-28 16:50] LABS: T4 FREE 0.52 ng/dL (0.76-1.46)
[2019-04-28 16:52] LABS: CREATINE KINASE MB FRACTION 1.2 ng/mL (0.5-3.6)
[2019-04-28 17:04] LABS: BG BASE EXCESS -14.3 mmol/L (-2.0-2.0); BG CARBOXYHEMOGLOBIN 0.8 % (0.5-1.5); BG DEOXYHEMOGLOBIN 13.8 % (0.0-5.0); BG FRACTION INSPIRED OXYGEN 70; BG HCO3 ACT 12.7 mmol/L (22.0-26.0); BG METHEMOGLOBIN 0.4 % (0.0-1.5); BG PCO2 33.9 mmHg (35.0-45.0); BG PH 7.192 (7.350-7.450); BG PO2 56.1 mmHg (75.0-100.0); BG SAMPLE SITE LEFT BRACHIAL; BG TIDAL VOLUME(mL) 600 mL; BG TOTAL HEMOGLOBIN 8.4 g/dL (12.0-18.0); BG VENT MODE VENT - A/C; BG VENT RATE 14 set
[2019-04-28] MEDS ORDERED: SODIUM BICARBONATE 8.4% 1 MEQ/ML 50ML SYR IV NR ×2 (17:15→22:45)
[2019-04-28] MEDS: PHENYLEPHRINE 80 MG in DEXT 5% WATER 492 ML IV PRN (18:21)
[2019-04-28] MEDS: IPRATROPIUM/ALBUTEROL 0.5-3(2.5)MG/3ML NEB HHN SCH (20:15)
[2019-04-28] MEDS ORDERED: LEVOFLOXACIN 500MG PREMIX 100 ML IV SCH (21:00)
[2019-04-28] MEDS ORDERED: LEVOFLOXACIN 250MG PREMIX 50 ML IV SCH (22:00)
[2019-04-28 22:31] LABS: BG BASE EXCESS -14.2 mmol/L (-2.0-2.0); BG CARBOXYHEMOGLOBIN 0.6 % (0.5-1.5); BG DEOXYHEMOGLOBIN 24.4 % (0.0-5.0); BG FRACTION INSPIRED OXYGEN 100; BG HCO3 ACT 13.5 mmol/L (22.0-26.0); BG METHEMOGLOBIN 0.3 % (0.0-1.5); BG OXYGEN SATURATION 75.4 % (92.0-98.5); BG OXYHEMOGLOBIN 74.7 % (94.0-97.0); BG PH 7.156 (7.350-7.450); BG PO2 45.1 mmHg (75.0-100.0); BG SAMPLE SITE RIGHT BRACHIAL; BG TIDAL VOLUME(mL) 600 mL; BG TOTAL HEMOGLOBIN 8.3 g/dL (12.0-18.0); BG VENT MODE VENT - A/C; BG VENT RATE 20 set
[2019-04-29] VITALS (89 sets, daily range): BP systolic 76–118; BP diastolic 42–67
[2019-04-29 00:49] LABS: CREATINE KINASE MB FRACTION 1.3 ng/mL (0.5-3.6)
[2019-04-29] MEDS: VASOPRESSIN 10 UNIT in SODIUM CHLORIDE 0.9% 99.5 ML IV PRN ×5 (01:21→20:40)
[2019-04-29] MEDS: SODIUM BICARBONATE 100 MEQ in SODIUM CHLORIDE 0.45% 1,000 ML IV SCH (01:40)
[2019-04-29] MEDS: PHENYLEPHRINE 80 MG in DEXT 5% WATER 492 ML IV PRN ×2 (02:53→10:25)
[2019-04-29] MEDS: IPRATROPIUM/ALBUTEROL 0.5-3(2.5)MG/3ML NEB HHN SCH ×3 (03:17→20:10)
[2019-04-29 06:16] LABS: HEMATOCRIT. 23.3 % (42.0-52.0); HEMOGLOBIN. 7.2 g/dL (14.0-18.0); MEAN CORPUSCULAR HEMOGLOBIN 25.9 pg (28.0-32.0); MEAN PLATELET VOLUME 9.2 fl (7.4-10.4); PLATELET 72 x1000/uL (130-400); RED BLOOD CELL COUNT 2.77 mill/uL (4.7-6.1); RED CELL DISTRIBUTION WIDTH 17.4 % (11.6-14.6)
[2019-04-29] MEDS: SODIUM CHLORIDE 0.9% INJ 3ML FLUSH IVF SCH ×3 (06:22→22:31)
[2019-04-29 06:35] LABS: CREATINE KINASE MB FRACTION 1.1 ng/mL (0.5-3.6)
[2019-04-29] MEDS ORDERED: FUROSEMIDE 40MG/4ML VIAL IVP SCH (09:00)
[2019-04-29 09:20] LABS: BG BASE EXCESS -14.4 mmol/L (-2.0-2.0); BG DEOXYHEMOGLOBIN 25.9 % (0.0-5.0); BG FRACTION INSPIRED OXYGEN 100; BG HCO3 ACT 13.3 mmol/L (22.0-26.0); BG METHEMOGLOBIN 0.1 % (0.0-1.5); BG OXYGEN SATURATION 73.8 % (92.0-98.5); BG PCO2 39.2 mmHg (35.0-45.0); BG PH 7.149 (7.350-7.450); BG SAMPLE SITE RIGHT BRACHIAL; BG TIDAL VOLUME(mL) 600 mL; BG TOTAL HEMOGLOBIN 7.6 g/dL (12.0-18.0); BG VENT MODE VENT - A/C; BG VENT RATE 26 set
[2019-04-29] MEDS ORDERED: SODIUM BICARBONATE 8.4% 1 MEQ/ML 50ML SYR IV NR ×2 (09:45→12:30)
[2019-04-29] MEDS: NOREPINEPHRINE 32 MG in DEXT 5% WATER 468 ML IV PRN (09:47)
[2019-04-29] MEDS: SODIUM BICARBONATE 150 MEQ in SODIUM CHLORIDE 0.45% 1,000 ML IV SCH (10:26)
[2019-04-29] MEDS ORDERED: LEVOFLOXACIN 500MG PREMIX 100 ML IV SCH (11:00)
[2019-04-29] MEDS: VANCOMYCIN 1250MG in DEXTROSE 5% WATER 250ML IV SCH (11:11)
[2019-04-29 12:12] LABS: BG BASE EXCESS -11.2 mmol/L (-2.0-2.0); BG CARBOXYHEMOGLOBIN 0.7 % (0.5-1.5); BG DEOXYHEMOGLOBIN 9.4 % (0.0-5.0); BG FRACTION INSPIRED OXYGEN 100; BG HCO3 ACT 14.5 mmol/L (22.0-26.0); BG METHEMOGLOBIN 0.2 % (0.0-1.5); BG OXYGEN SATURATION 90.5 % (92.0-98.5); BG OXYHEMOGLOBIN 89.7 % (94.0-97.0); BG PCO2 31.6 mmHg (35.0-45.0); BG PH 7.279 (7.350-7.450); BG PO2 61.1 mmHg (75.0-100.0); BG SAMPLE SITE RIGHT BRACHIAL; BG TIDAL VOLUME(mL) 600 mL; BG TOTAL HEMOGLOBIN 8.7 g/dL (12.0-18.0); BG VENT MODE VENT - A/C; BG VENT RATE 30 set
[2019-04-29 13:12] LABS: PLATELET ESTIMATE DECREASED
[2019-04-29] MEDS: MEROPENEM 1,000 MG in SODIUM CHLORIDE 0.9% 100 ML IV SCH (16:21)
[2019-04-29] MEDS: PHENYLEPHRINE IV PRN (19:29)
[2019-04-29] MEDS: DEXTROSE 5% IV PRN (19:29)
[2019-04-29] MEDS: WATER IV PRN (19:29)
[2019-04-30] VITALS (104 sets, daily range): BP systolic 63–142; BP diastolic 31–113
[2019-04-30] MEDS: MEROPENEM 1,000 MG in SODIUM CHLORIDE 0.9% 100 ML IV SCH ×3 (00:32→17:03)
[2019-04-30] MEDS: VASOPRESSIN 10 UNIT in SODIUM CHLORIDE 0.9% 99.5 ML IV PRN ×5 (01:20→20:22)
[2019-04-30] MEDS: IPRATROPIUM/ALBUTEROL 0.5-3(2.5)MG/3ML NEB HHN SCH ×3 (02:00→20:32)
[2019-04-30] MEDS: SODIUM BICARBONATE 150 MEQ in SODIUM CHLORIDE 0.45% 1,000 ML IV SCH ×2 (02:57→17:03)
[2019-04-30] MEDS: WATER IV PRN ×3 (03:03→19:44)
[2019-04-30] MEDS: PHENYLEPHRINE IV PRN ×3 (03:03→19:44)
[2019-04-30] MEDS: DEXTROSE 5% IV PRN ×3 (03:03→19:44)
[2019-04-30] MEDS: NOREPINEPHRINE 32 MG in DEXT 5% WATER 468 ML IV PRN ×2 (04:32→19:43)
[2019-04-30] MEDS: SODIUM CHLORIDE 0.9% INJ 3ML FLUSH IVF SCH ×3 (05:07→22:06)
[2019-04-30] MEDS: VANCOMYCIN 1250MG in DEXTROSE 5% WATER 250ML IV SCH (05:08)
[2019-04-30 05:59] LABS: MEAN CORPUSCULAR HEMOGLOBIN 25.4 pg (28.0-32.0); MEAN CORPUSCULAR VOLUME 80.7 fL (80.0-94.0); MEAN PLATELET VOLUME 9.8 fl (7.4-10.4); RED BLOOD CELL COUNT 2.58 mill/uL (4.7-6.1); RED CELL DISTRIBUTION WIDTH 17.7 % (11.6-14.6)
[2019-04-30 06:48] LABS: HEMATOCRIT. 20.8 % (42.0-52.0); HEMOGLOBIN. 6.5 g/dL (14.0-18.0)
[2019-04-30 06:49] LABS: PLATELET 29 x1000/uL (130-400)
[2019-04-30] MEDS ORDERED: POTASSIUM CHLORIDE 20MEQ/PACKET PO SCH (09:00)
[2019-04-30 09:15] LABS: BG BASE EXCESS -5.4 mmol/L (-2.0-2.0); BG CARBOXYHEMOGLOBIN 1.1 % (0.5-1.5); BG DEOXYHEMOGLOBIN 0.6 % (0.0-5.0); BG FRACTION INSPIRED OXYGEN 100; BG HCO3 ACT 18.2 mmol/L (22.0-26.0); BG METHEMOGLOBIN 0.3 % (0.0-1.5); BG OXYGEN SATURATION 99.4 % (92.0-98.5); BG PH 7.431 (7.350-7.450); BG PO2 269.4 mmHg (75.0-100.0); BG SAMPLE SITE RIGHT RADIAL; BG TIDAL VOLUME(mL) 600 mL; BG TOTAL HEMOGLOBIN 7.2 g/dL (12.0-18.0); BG VENT MODE VENT - A/C; BG VENT RATE 30 set
[2019-04-30 15:23] LABS: PLATELET ESTIMATE MARKEDLY DECREASED
[2019-04-30 19:39] LABS: HEMATOCRIT 22.4 % (42.0-52.0); HEMOGLOBIN 7.3 g/dL (14.0-18.0)
[2019-05-01] VITALS (102 sets, daily range): BP systolic 65–131; BP diastolic 35–106
[2019-05-01] MEDS: MEROPENEM 1,000 MG in SODIUM CHLORIDE 0.9% 100 ML IV SCH ×3 (01:39→16:55)
[2019-05-01] MEDS: VASOPRESSIN 10 UNIT in SODIUM CHLORIDE 0.9% 99.5 ML IV PRN ×5 (01:41→21:33)
[2019-05-01] MEDS: IPRATROPIUM/ALBUTEROL 0.5-3(2.5)MG/3ML NEB HHN SCH ×4 (01:50→20:44)
[2019-05-01] MEDS: DEXTROSE 5% IV PRN ×3 (03:42→18:25)
[2019-05-01] MEDS: PHENYLEPHRINE IV PRN ×3 (03:42→18:25)
[2019-05-01] MEDS: WATER IV PRN ×3 (03:42→18:25)
[2019-05-01 05:42] LABS: HEMATOCRIT. 26.4 % (42.0-52.0); HEMOGLOBIN. 8.9 g/dL (14.0-18.0); MEAN CORPUSCULAR HEMOGLOBIN 27.2 pg (28.0-32.0); MEAN CORPUSCULAR VOLUME 80.4 fL (80.0-94.0); MEAN PLATELET VOLUME 9.7 fl (7.4-10.4); RED BLOOD CELL COUNT 3.28 mill/uL (4.7-6.1); RED CELL DISTRIBUTION WIDTH 16.8 % (11.6-14.6)
[2019-05-01 05:52] LABS: CHLORIDE 91 mEq/L (98-107)
[2019-05-01 05:57] LABS: PLATELET 14 x1000/uL (130-400)
[2019-05-01] MEDS: SODIUM CHLORIDE 0.9% INJ 3ML FLUSH IVF SCH ×3 (05:59→21:50)
[2019-05-01 06:01] LABS: PHOSPHORUS 2.4 mg/dL (2.5-4.9)
[2019-05-01 07:42] LABS: NUCLEATED RED BLOOD CELLS 1 /100 WBC; PLATELET ESTIMATE MARKEDLY DECREASED
[2019-05-01 08:19] LABS: BG BASE EXCESS -6.3 mmol/L (-2.0-2.0); BG CARBOXYHEMOGLOBIN 0.1 % (0.5-1.5); BG DEOXYHEMOGLOBIN 4.2 % (0.0-5.0); BG FRACTION INSPIRED OXYGEN 80; BG HCO3 ACT 16.7 mmol/L (22.0-26.0); BG METHEMOGLOBIN 0.3 % (0.0-1.5); BG OXYGEN SATURATION 95.8 % (92.0-98.5); BG OXYHEMOGLOBIN 95.4 % (94.0-97.0); BG PCO2 26.3 mmHg (35.0-45.0); BG PO2 80.8 mmHg (75.0-100.0); BG SAMPLE SITE RIGHT RADIAL; BG TIDAL VOLUME(mL) 600 mL; BG TOTAL HEMOGLOBIN 12.1 g/dL (12.0-18.0); BG VENT MODE VENT - A/C; BG VENT RATE 30 set
[2019-05-01] MEDS ORDERED: POTASSIUM PHOS,M-BASIC-D-BASIC 10 MMOL in DEXT 5% WATER 246.6667 ML IV SCH (09:00)
[2019-05-01] MEDS ORDERED: MAGNESIUM 2 G PREMIX 50 ML IV SCH (09:00)
[2019-05-01] MEDS: SODIUM BICARBONATE 150 MEQ in SODIUM CHLORIDE 0.45% 1,000 ML IV SCH (09:26)
[2019-05-01] MEDS ORDERED: MAGNESIUM 4 G PREMIX 100 ML IV NR (11:00)
[2019-05-01] MEDS: PANTOPRAZOLE SODIUM 40 MG/VIAL IV SCH (16:55)
[2019-05-02] VITALS (65 sets, daily range): BP systolic 73–141; BP diastolic 41–91
[2019-05-02] MEDS: IPRATROPIUM/ALBUTEROL 0.5-3(2.5)MG/3ML NEB HHN SCH ×4 (01:51→20:33)
[2019-05-02] MEDS: SODIUM BICARBONATE 150 MEQ in SODIUM CHLORIDE 0.45% 1,000 ML IV SCH (02:00)
[2019-05-02] MEDS: MEROPENEM 1,000 MG in SODIUM CHLORIDE 0.9% 100 ML IV SCH ×3 (02:20→18:11)
[2019-05-02] MEDS: DEXTROSE 5% IV PRN ×3 (03:24→18:12)
[2019-05-02] MEDS: WATER IV PRN ×3 (03:24→18:12)
[2019-05-02] MEDS: PHENYLEPHRINE IV PRN ×3 (03:24→18:12)
[2019-05-02] MEDS: SODIUM CHLORIDE 0.9% INJ 3ML FLUSH IVF SCH ×3 (06:32→22:17)
[2019-05-02] MEDS: VASOPRESSIN 10 UNIT in SODIUM CHLORIDE 0.9% 99.5 ML IV PRN ×2 (06:35→13:07)
[2019-05-02 07:44] LABS: HEMATOCRIT. 26.1 % (42.0-52.0); HEMOGLOBIN. 8.6 g/dL (14.0-18.0); MEAN CORPUSCULAR HEMOGLOBIN 26.5 pg (28.0-32.0); MEAN PLATELET VOLUME 9.2 fl (7.4-10.4); RED BLOOD CELL COUNT 3.26 mill/uL (4.7-6.1); RED CELL DISTRIBUTION WIDTH 17.6 % (11.6-14.6)
[2019-05-02 08:09] LABS: PLATELET 22 x1000/uL (130-400)
[2019-05-02 08:32] LABS: CHLORIDE 87 mEq/L (98-107)
[2019-05-02 09:04] LABS: BG CARBOXYHEMOGLOBIN 0.3 % (0.5-1.5); BG DEOXYHEMOGLOBIN 0.7 % (0.0-5.0); BG FRACTION INSPIRED OXYGEN 100; BG HCO3 ACT 21.4 mmol/L (22.0-26.0); BG METHEMOGLOBIN 0.3 % (0.0-1.5); BG OXYGEN SATURATION 99.3 % (92.0-98.5); BG OXYHEMOGLOBIN 98.7 % (94.0-97.0); BG PCO2 24.6 mmHg (35.0-45.0); BG PH 7.558 (7.350-7.450); BG PO2 293.8 mmHg (75.0-100.0); BG SAMPLE SITE RIGHT FEMORAL; BG TIDAL VOLUME(mL) 600 mL; BG TOTAL HEMOGLOBIN 9.6 g/dL (12.0-18.0); BG VENT MODE VENT - A/C; BG VENT RATE 30 set
[2019-05-02] MEDS: DEXT 5%/0.9% NACL 1,000 ML IV SCH (10:09)
[2019-05-02] MEDS: PANTOPRAZOLE SODIUM 40 MG/VIAL IV SCH ×2 (10:09→18:11)
[2019-05-02] MEDS: NOREPINEPHRINE 32 MG in DEXT 5% WATER 468 ML IV PRN (10:10)
[2019-05-02] MEDS ORDERED: KCL 20MEQ/100ML PREMIX 100 ML IV SCH ×3 (10:30→14:30)
[2019-05-02] MEDS ORDERED: MAGNESIUM 2 G PREMIX 50 ML IV SCH (11:00)
[2019-05-02] MEDS ORDERED: DIGOXIN 500MCG/2ML AMP IV NR ×2 (11:43→18:00)
[2019-05-02] MEDS ORDERED: ALBUMIN HUMAN 25GM/100ML (25%) IV NR (11:45)
[2019-05-02 21:07] LABS: PLATELET ESTIMATE MARKEDLY DECREASED
[2019-05-03] VITALS (106 sets, daily range): BP systolic 76–167; BP diastolic 26–76
[2019-05-03] MEDS ORDERED: DIGOXIN 500MCG/2ML AMP IV NR
[2019-05-03] MEDS: VASOPRESSIN 10 UNIT in SODIUM CHLORIDE 0.9% 99.5 ML IV PRN ×2 (00:21→17:23)
[2019-05-03] MEDS: WATER IV PRN ×4 (01:14→23:53)
[2019-05-03] MEDS: DEXTROSE 5% IV PRN ×4 (01:14→23:53)
[2019-05-03] MEDS: PHENYLEPHRINE IV PRN ×4 (01:14→23:53)
[2019-05-03] MEDS: NOREPINEPHRINE 32 MG in DEXT 5% WATER 468 ML IV PRN ×2 (01:15→17:22)
[2019-05-03] MEDS: IPRATROPIUM/ALBUTEROL 0.5-3(2.5)MG/3ML NEB HHN SCH ×4 (01:32→20:20)
[2019-05-03] MEDS: DEXT 5%/0.9% NACL 1,000 ML IV SCH ×2 (02:55→15:59)
[2019-05-03] MEDS: MEROPENEM 1,000 MG in SODIUM CHLORIDE 0.9% 100 ML IV SCH ×3 (05:00→16:00)
[2019-05-03 05:46] LABS: CHLORIDE 89 mEq/L (98-107)
[2019-05-03 05:54] LABS: PHOSPHORUS 3.3 mg/dL (2.5-4.9)
[2019-05-03] MEDS: SODIUM CHLORIDE 0.9% INJ 3ML FLUSH IVF SCH ×3 (06:00→22:00)
[2019-05-03 08:13] LABS: HEMATOCRIT. 26.1 % (42.0-52.0); HEMOGLOBIN. 8.2 g/dL (14.0-18.0); MEAN CORPUSCULAR HEMOGLOBIN 26.1 pg (28.0-32.0); MEAN PLATELET VOLUME 9.9 fl (7.4-10.4); RED BLOOD CELL COUNT 3.15 mill/uL (4.7-6.1); RED CELL DISTRIBUTION WIDTH 17.9 % (11.6-14.6)
[2019-05-03] MEDS: PANTOPRAZOLE SODIUM 40 MG/VIAL IV SCH ×2 (08:24→16:00)
[2019-05-03 08:29] LABS: PLATELET 17 x1000/uL (130-400)
[2019-05-03 08:53] LABS: BG BASE EXCESS -5.6 mmol/L (-2.0-2.0); BG CARBOXYHEMOGLOBIN 0.8 % (0.5-1.5); BG DEOXYHEMOGLOBIN 6.4 % (0.0-5.0); BG FRACTION INSPIRED OXYGEN 100; BG HCO3 ACT 19.1 mmol/L (22.0-26.0); BG METHEMOGLOBIN 0.3 % (0.0-1.5); BG OXYGEN SATURATION 93.5 % (92.0-98.5); BG OXYHEMOGLOBIN 92.5 % (94.0-97.0); BG PCO2 34.2 mmHg (35.0-45.0); BG PH 7.364 (7.350-7.450); BG PO2 71.9 mmHg (75.0-100.0); BG SAMPLE SITE LEFT RADIAL; BG TIDAL VOLUME(mL) 600 mL; BG TOTAL HEMOGLOBIN 9.8 g/dL (12.0-18.0); BG VENT MODE VENT - A/C; BG VENT RATE 26 set
[2019-05-03 13:27] LABS: NUCLEATED RED BLOOD CELLS 1 /100 WBC; PLATELET ESTIMATE MARKEDLY DECREASED
[2019-05-04] VITALS (98 sets, daily range): BP systolic 55–121; BP diastolic 37–81
[2019-05-04] MEDS: MEROPENEM 1,000 MG in SODIUM CHLORIDE 0.9% 100 ML IV SCH ×3 (00:40→15:58)
[2019-05-04] MEDS: IPRATROPIUM/ALBUTEROL 0.5-3(2.5)MG/3ML NEB HHN SCH ×4 (01:42→20:10)
[2019-05-04] MEDS: VASOPRESSIN 10 UNIT in SODIUM CHLORIDE 0.9% 99.5 ML IV PRN ×3 (02:03→18:41)
[2019-05-04] MEDS: DEXT 5%/0.9% NACL 1,000 ML IV SCH ×2 (06:41→15:58)
[2019-05-04] MEDS: SODIUM CHLORIDE 0.9% INJ 3ML FLUSH IVF SCH ×3 (06:42→21:16)
[2019-05-04 07:02] LABS: CHLORIDE 89 mEq/L (98-107)
[2019-05-04] MEDS: DEXTROSE 5% IV PRN ×3 (07:07→22:14)
[2019-05-04] MEDS: PHENYLEPHRINE IV PRN ×3 (07:07→22:14)
[2019-05-04] MEDS: WATER IV PRN ×3 (07:07→22:14)
[2019-05-04] MEDS: PANTOPRAZOLE SODIUM 40 MG/VIAL IV SCH ×2 (08:19→15:58)
[2019-05-04 08:50] LABS: BG BASE EXCESS -4.7 mmol/L (-2.0-2.0); BG CARBOXYHEMOGLOBIN 0.5 % (0.5-1.5); BG DEOXYHEMOGLOBIN 5.4 % (0.0-5.0); BG FRACTION INSPIRED OXYGEN 100; BG HCO3 ACT 19.3 mmol/L (22.0-26.0); BG METHEMOGLOBIN 0.3 % (0.0-1.5); BG OXYGEN SATURATION 94.6 % (92.0-98.5); BG OXYHEMOGLOBIN 93.8 % (94.0-97.0); BG PCO2 31.5 mmHg (35.0-45.0); BG PH 7.406 (7.350-7.450); BG PO2 79.1 mmHg (75.0-100.0); BG SAMPLE SITE RIGHT RADIAL; BG TIDAL VOLUME(mL) 600 mL; BG TOTAL HEMOGLOBIN 8.9 g/dL (12.0-18.0); BG VENT MODE VENT - A/C; BG VENT RATE 26 set
[2019-05-04] MEDS ORDERED: SODIUM POLYSTYRENE SULFONATE 15 G/60 ML BOT PO SCH (09:00)
[2019-05-04] MEDS: NOREPINEPHRINE 32 MG in DEXT 5% WATER 468 ML IV PRN (09:15)
[2019-05-04] MEDS: CITRIC ACID/SODIUM CITRATE SOLN 15ML UDC PO SCH ×3 (10:31→15:58)
[2019-05-04 10:35] LABS: HEMATOCRIT. 25.2 % (42.0-52.0); HEMOGLOBIN. 8.3 g/dL (14.0-18.0); MEAN CORPUSCULAR HEMOGLOBIN 26.9 pg (28.0-32.0); MEAN CORPUSCULAR VOLUME 82.1 fL (80.0-94.0); MEAN PLATELET VOLUME 9.6 fl (7.4-10.4); RED BLOOD CELL COUNT 3.07 mill/uL (4.7-6.1); RED CELL DISTRIBUTION WIDTH 17.9 % (11.6-14.6)
[2019-05-04 10:44] LABS: PLATELET 32 x1000/uL (130-400)
[2019-05-04 12:17] LABS: PLATELET ESTIMATE MARKEDLY DECREASED
[2019-05-05] VITALS (50 sets, daily range): BP systolic 90–128; BP diastolic 50–78
[2019-05-05] MEDS: MEROPENEM 1,000 MG in SODIUM CHLORIDE 0.9% 100 ML IV SCH ×2 (00:27→08:41)
[2019-05-05] MEDS: IPRATROPIUM/ALBUTEROL 0.5-3(2.5)MG/3ML NEB HHN SCH ×2 (02:05→07:34)
[2019-05-05] MEDS: PHENYLEPHRINE IV PRN (05:31)
[2019-05-05] MEDS: NOREPINEPHRINE 32 MG in DEXT 5% WATER 468 ML IV PRN (05:31)
[2019-05-05] MEDS: WATER IV PRN (05:31)
[2019-05-05] MEDS: DEXTROSE 5% IV PRN (05:31)
[2019-05-05 06:02] LABS: HEMATOCRIT. 26.1 % (42.0-52.0); HEMOGLOBIN. 8.4 g/dL (14.0-18.0); MEAN CORPUSCULAR HEMOGLOBIN 26.5 pg (28.0-32.0); MEAN CORPUSCULAR VOLUME 82.7 fL (80.0-94.0); RED BLOOD CELL COUNT 3.15 mill/uL (4.7-6.1); RED CELL DISTRIBUTION WIDTH 17.7 % (11.6-14.6)
[2019-05-05 06:12] LABS: CHLORIDE 90 mEq/L (98-107)
[2019-05-05 06:21] LABS: PHOSPHORUS 3.2 mg/dL (2.5-4.9)
[2019-05-05] MEDS: SODIUM CHLORIDE 0.9% INJ 3ML FLUSH IVF SCH (06:53)
[2019-05-05 07:01] LABS: PLATELET 24 x1000/uL (130-400)
[2019-05-05 07:20] LABS: BG BASE EXCESS -3.4 mmol/L (-2.0-2.0); BG CARBOXYHEMOGLOBIN 0.5 % (0.5-1.5); BG DEOXYHEMOGLOBIN 2.2 % (0.0-5.0); BG FRACTION INSPIRED OXYGEN 100; BG HCO3 ACT 21.2 mmol/L (22.0-26.0); BG METHEMOGLOBIN 0.2 % (0.0-1.5); BG OXYGEN SATURATION 97.8 % (92.0-98.5); BG OXYHEMOGLOBIN 97.1 % (94.0-97.0); BG PCO2 36.1 mmHg (35.0-45.0); BG PH 7.387 (7.350-7.450); BG PO2 113.6 mmHg (75.0-100.0); BG SAMPLE SITE RIGHT RADIAL; BG TIDAL VOLUME(mL) 600 mL; BG TOTAL HEMOGLOBIN 9.1 g/dL (12.0-18.0); BG VENT MODE VENT - A/C; BG VENT RATE 26 set
[2019-05-05] MEDS: DEXT 5%/0.9% NACL 1,000 ML IV SCH (07:39)
[2019-05-05] MEDS: VASOPRESSIN 10 UNIT in SODIUM CHLORIDE 0.9% 99.5 ML IV PRN (07:56)
[2019-05-05] MEDS: CITRIC ACID/SODIUM CITRATE SOLN 15ML UDC PO SCH (08:40)
[2019-05-05] MEDS: PANTOPRAZOLE SODIUM 40 MG/VIAL IV SCH (08:40)
[2019-05-05] MEDS ORDERED: LORAZEPAM 2MG/ML CPJ IV PRN (10:30)
[2019-05-05] MEDS ORDERED: ATROPINE SULFATE 1% OPHTH 2ML SL PRN (10:30)
[2019-05-05] MEDS ORDERED: MORPHINE SULFATE 100 MG in DEXT 5% WATER 90 ML IV PRN (11:00)
[2019-05-05] MEDS ORDERED: MAGNESIUM 2 G PREMIX 50 ML IV NR (12:00)
[2019-05-05 19:40] LABS: PLATELET ESTIMATE MARKEDLY DECREASED
== END 2019-05-05 14:06 | disposition expired | DRG 720 ==
LOC: ER 12:23 → CVICU 14:05 → EDBEDREQ 14:10 → ENRESERV 04-28 12:28
PROVIDERS: ADMIT Internal Medicine; ATTEND Internal Medicine
PROC: 5A1955Z Respiratory Ventilation, Greater than 96 Consecutive Hours (ICD-10-PCS; principal; 2019-04-27)
PROC: 06HY33Z Insertion of Infusion Device into Lower Vein, Percutaneous Approach (ICD-10-PCS; 2019-04-27)
PROC: 0BH17EZ Insertion of Endotracheal Airway into Trachea, Via Natural or Artificial Opening (ICD-10-PCS; 2019-04-27)
PROC: 30233N1 Transfusion of Nonautologous Red Blood Cells into Peripheral Vein, Percutaneous Approach (ICD-10-PCS; 2019-04-28)
PROC: 30233R1 Transfusion of Nonautologous Platelets into Peripheral Vein, Percutaneous Approach (ICD-10-PCS; 2019-05-01)
DX: A41.59 Other Gram-negative sepsis (principal); N17.0 Acute kidney failure with tubular necrosis; D65 Disseminated intravascular coagulation [defibrination syndrome]; R65.21 Severe sepsis with septic shock; E43 Unspecified severe protein-calorie malnutrition; J18.9 Pneumonia, unspecified organism; J96.00 Acute respiratory failure, unspecified whether with hypoxia or hypercapnia; J96.01 Acute respiratory failure with hypoxia; G93.40 Encephalopathy, unspecified; L89.159 Pressure ulcer of sacral region, unspecified stage; D68.9 Coagulation defect, unspecified; E87.1 Hypo-osmolality and hyponatremia; E87.2 Acidosis; N39.0 Urinary tract infection, site not specified; C79.9 Secondary malignant neoplasm of unspecified site; E87.70 Fluid overload, unspecified; B96.1 Klebsiella pneumoniae [K. pneumoniae] as the cause of diseases classified elsewhere; C61 Malignant neoplasm of prostate; C79.51 Secondary malignant neoplasm of bone; E66.01 Morbid (severe) obesity due to excess calories; Z68.27 Body mass index [BMI] 27.0-27.9, adult; E78.5 Hyperlipidemia, unspecified; E83.51 Hypocalcemia; G82.20 Paraplegia, unspecified; I11.9 Hypertensive heart disease without heart failure; I47.1 Supraventricular tachycardia; I48.91 Unspecified atrial fibrillation; K75.9 Inflammatory liver disease, unspecified; L97.409 Non-pressure chronic ulcer of unspecified heel and midfoot with unspecified severity; D63.8 Anemia in other chronic diseases classified elsewhere; G93.41 Metabolic encephalopathy; R73.9 Hyperglycemia, unspecified; R62.7 Adult failure to thrive; K59.00 Constipation, unspecified; M86.8X7 Other osteomyelitis, ankle and foot; Z51.5 Encounter for palliative care; Z66 Do not resuscitate; Z85.46 Personal history of malignant neoplasm of prostate; Z86.718 Personal history of other venous thrombosis and embolism; Z88.0 Allergy status to penicillin; Z92.21 Personal history of antineoplastic chemotherapy; Z88.1 Allergy status to other antibiotic agents; Z79.899 Other long term (current) drug therapy; Z85.038 Personal history of other malignant neoplasm of large intestine; Z78.1 Physical restraint status; Z92.3 Personal history of irradiation
CPT/HCPCS: 36415; 36600; 71045; 76770; 80048; 80061; 80202; 82375; 82550; 82553; 82805; 82962; 83036; 83605; 83735; 83880; 83930; 84100; 84145; 84153; 84439; 84443; 84484; 85014; 85018; 85362; 85379; 85384; 86022; 86850; 86900; 86920; 87070; 87077; 87186; 93005; 93306; 93970; 94002; 94003; 94640; 96365; 99291; C9113; J1160; J1940; J1956; J2185; J2250; J2370; J2543; J2704; J3010; J3370; J3475; J3480; J3490; J7030; J7042; J7050; J7060; J7620; P9016; P9021; P9034; P9047; A4315; G0103